=== PATIENT | male | born 1940 | race Caucasian/White ===

== ENCOUNTER → 2018-07-09 10:44 | Outpatient (CLI) | payer MEDICARE, SELFPAY ==
[2018-07-09 12:39] LABS: Hemoglobin A1c 5.9 % (4.2-6.3)
[2018-07-09 12:58] LABS: Anion Gap 11 (5-15); BUN 18 mg/dL (7-18); BUN/Creat Ratio 19.6 RATIO (10-20); Calcium,Total 8.3 mg/dL (8.5-10.1); Chloride 102 mmol/L (98-107); Cholesterol 185 mg/dL (200); Creatinine, Serum 0.92 mg/dL (0.70-1.30); EST Glomerular Filtration Rate 85 mL/min (>60); Est Glom Filt Rate - Afr Amer 103 mL/min (>60); Glucose 117 mg/dL (74-106); High Density Lipoprotein 20 mg/dL; Sodium Level 137 mmol/L (136-145); Triglycerides 1237 mg/dL
== END ==
PROVIDERS: Family Provider Family Medicine; PCP Family Medicine; Visit Provider Family Medicine
DX: I10 Essential (primary) hypertension (principal); R73.01 Impaired fasting glucose; E78.5 Hyperlipidemia, unspecified; M10.9 Gout, unspecified
CPT/HCPCS: 36415; 80048; 80061; 83036; 84550

== ENCOUNTER → 2018-09-13 09:30 | Outpatient (CLI) | payer MEDICARE, SELFPAY ==
[2018-09-13 12:09] LABS: Cholesterol 152 mg/dL (200); High Density Lipoprotein 35 mg/dL; Triglycerides 317 mg/dL; Very Low Density Lipoprotein 63 mg/dL (5-40)
== END ==
PROVIDERS: Family Provider Family Medicine; PCP Family Medicine; Visit Provider Family Medicine
DX: E78.5 Hyperlipidemia, unspecified (principal)
CPT/HCPCS: 36415; 80061

== ENCOUNTER 2019-02-15 00:44 | Inpatient (IN) | payer MEDICARE, SELFPAY ==
[2019-02-15] VITALS (21 sets, daily range): BP systolic 104–141; BP diastolic 63–86; PULSE 63–93; RESP 16–27; TEMP 36.4–37.3; O2SAT 90–95; BMI 37.0; BMI 35.6
--- NOTE | 2019-02-15 00:53 | CT_ITS ---
We are attempting to reach an attending provider to discuss findings. An addendum with communication details will be sent when the communication is complete. HISTORY: LOWER ABD PAIN X 2 HOURS EXAMINATION: CT Abdomen And Pelvis W/O Contrast TECHNIQUE: Helically acquired images were obtained of the abdomen and pelvis without oral or IV contrast as per renal stone protocol. A radiation dose optimization technique was used for this scan. IV Contrast dosage and agent: None. Oral contrast: None. COMPARISON: None FINDINGS: Lower thorax: Pectus excavatum deformity. Mild dependent atelectasis. No pleural effusion. GI tract: No obstruction. Normal appendix. Diverticulosis coli. The lower sigmoid shows localized mural thickening with pericolonic soft tissue stranding compatible with diverticulitis. Numerous gas bubbles within the upper abdomen and small pneumoperitoneum most likely secondary to perforated diverticulitis. The sigmoid site of inflammation shows a small intramural gas collection anteriorly. Small free fluid within the right pericolonic gutter. Fatty liver which is upper normal in size. No biliary dilatation or suspicious hepatic lesion. Normal spleen, pancreas, and gallbladder. Both kidneys are normal in position. No renal or ureteral calculi and no hydronephrosis or hydroureter. Adrenal glands are not enlarged. Abdominal aorta is atherosclerotic and is normal in caliber. No retroperitoneal lymph enlargement. Pelvis: Mild prostatic enlargement. Poor distention of the urinary bladder. Tiny intraluminal gas within urinary bladder and small gas-filled diverticulum of the upper anterior bladder is suggested. This is potentially a small urachal remnant. Bones: No acute osseous abnormality. Ventral abdominal Wall: Small umbilical hernia which contains a nondilated small bowel loop. CT/Abdomen/Pelvis without Cont IMPRESSION: 1. Lower sigmoid diverticulitis. Small pneumoperitoneum within the upper abdomen, likely related to perforated diverticulitis. Right pericolic small free fluid. The appendix appears negative. 2. Prostatic enlargement with small intraluminal urinary bladder gas which may be iatrogenic and recommend clinical correlation. 3. Chronic findings include fatty liver, atherosclerotic calcifications, and small umbilical hernia. Individualized dose optimization techniques were used for this CT. at 0322 Reported and signed by: Herson Keating MD Electronically Signed: Herson Keating, at 3:21 EDT Tel , Service support ,
[2019-02-15] MEDS: Ondansetron 4 MG/2 ML Vial IV (01:26)
[2019-02-15] MEDS: Morphine 4 MG/ML Syringe IV (01:26)
[2019-02-15 01:40] LABS: Absolute Lymphocyte Count 1.15 X10^3/ul (0.83-4.51); Absolute Neutrophil Count 13.2 X10^3/uL (2.0-7.7); Basophil# 0.01 X10^3/uL; Basophil% 0.1 % (0-1); Eosinophil# 0.01 X10^3/uL; Eosinophils% 0.1 % (0-5); Hematocrit 45.8 % (40-54); Hemoglobin 15.9 g/dl (13.0-16.5); Lymphocyte # 1.15 X10^3/ul (4.0); Lymphocyte % 7.6 % (19-41); Mean Corp Hgb Conc 34.7 g/gl (32-36); Mean Corpuscular Hgb 31.4 pg (27.0-32.0); Mean Corpuscular Volume 90.3 fL (80-94); Mean Platelet Vol. 10.4 fl (6.2-12.0); Neutrophil # 13.24 X10^3/uL (2.7-7.7); Platelet Count 218 K/mm3 (150-450); RBC Distribution Width CV 13.9 % (11.6-14.6); RBC Distribution Width SD 45.5 fl (35.1-43.9); Red Blood Count 5.07 M/mm3 (4.6-6.2)
[2019-02-15 01:49] LABS: POSITIVE COUNT NO; POSITIVE DIFFERENTIAL NO; POSITIVE MORPHOLOGY NO
[2019-02-15 02:01] LABS: AST(SGOT) 20 U/L (15-37); Alanine Aminotransfer ALT/SGPT 32 U/L (16-61); Albumin, Serum 3.5 g/dL (3.2-5.0); Alkaline Phosphatase 102 U/L (45-117); Anion Gap 13 (5-15); BUN 15 mg/dL (7-18); Calcium,Total 8.4 mg/dL (8.5-10.1); Chloride 100 mmol/L (98-107); Creatinine, Serum 1.07 mg/dL (0.70-1.30); EST Glomerular Filtration Rate 71 mL/min (>60); Est Glom Filt Rate - Afr Amer 86 mL/min (>60); Globulin 3.5 g/dL (2.2-4.2); Glucose 136 mg/dL (74-106); Lipase 92 U/L (73-393); Potassium 3.7 mmol/L (3.5-5.1); Sodium Level 135 mmol/L (136-145)
[2019-02-15 02:03] LABS: Lactic Acid 3.4 mmol/L (0.4-2.0)
--- NOTE | 2019-02-15 02:05 | ED.RN ---
LAB CALLED CRITICAL RESULT ON THIS PATIENT OF LACTIC ACID OF 3.4, DR DELGADO NOTIFIED, NFO GIVEN
[2019-02-15] MEDS: HYDROmorphone 0.5 MG/0.5 ML SYRINGE IV (03:15)
[2019-02-15 03:22] LABS: Red Blood Cells-Urine 0 SEEN /hpf (0-5)
[2019-02-15 03:30] LABS: Color, Urine Yellow (Yellow); Glucose, Dipstick Normal (Normal); Ketone-Dipstick 5 mg/dl (Negative); Leukocyte Esterase-Dipstick 25 /ul (Negative); Nitrite-Dipstick Negative (Negative); Occult Blood-Urine Negative /ul (Negative); Protein-Dipstick 15 mg/dl (Negative); Specific Gravity, Urine 1.025 (1.002-1.030); Urine Clarity Clear (Clear); Urine Urobilinogen 4 mg/dl (Normal)
[2019-02-15 03:32] LABS: Urine Bilirubin Dipstick 1 mg/dL (Negative)
[2019-02-15 03:35] LABS: Bacteria RARE /hpf (None Seen); Hyaline Cast 0-5 SEEN /lpf (0-5); Mucous, Urine 2+ /hpf (<or=2+)
[2019-02-15 03:36] LABS: Squamous Epithelial Cells - UA 0-5 SEEN /hpf (0-5); White Blood Cells 0-5 SEEN /hpf (0-5)
--- NOTE | 2019-02-15 03:43 | EKG12_ITS ---
Test Reason : Blood Pressure : / mmHG Vent. Rate : 067 BPM Atrial Rate : 067 BPM P-R Int : 178 ms QRS Dur : 076 ms QT Int : 410 ms P-R-T Axes : 037 -30 051 degrees QTc Int : 433 ms Normal sinus rhythm Left axis deviation Poor R- Wave Progression Abnormal ECG Confirmed by VINCE POLO, KEYNA ([id number]), news video editor AUTUMN COYLE ([id number]) on 02/16/2019 11:24:45 AM Referred By: MODE Confirmed By:KENYA CLARKE MD
--- NOTE | 2019-02-15 03:50 | ED.DCSUM_ITS ---
- ER Visit Summary Date of Service: 02/15/19 Chief Complaint: Abdominal pain History of Present Illness: The patient is a 78 M who presents with abdominal pain. This began about 2 hours before presentation. He states he felt like he did have a bowel movement then developed worsening diffuse cramping abdominal pain which she rates as severe. No nausea vomiting or diarrhea. No history of prior similar symptoms. He denies any history of abdominal surgeries. Physical Examination: Afebrile vitals unremarkable Patient does appear to be in significant pain Moist mucous membranes Heart regular rate and rhythm Lungs are clear Abdomen soft he slightly distended with diffuse abdominal tenderness without guarding without rebound he has normal bowel sounds Alert Test Results: Labs notable for white count of 15. Lactic acid 3.4. CT of the abdomen pelvis shows sigmoid diverticulitis with small pneumoperitoneum and right pericolic fluid. Emergency Department Course and Treatment: Patient was treated with IV fluids, morphine, Zofran. On return of CT results he was given IV Zosyn. On reevaluation he had transient improvement of pain but states his pain is back to the level it was when he initially presented. He was given IV Dilaudid with significant relief. I did speak to Dr. Greenwood who reviewed images call me back and plans for operative intervention. He will see the patient here in the emergency department. Treatment Plan: [] Disposition: To operating room pending surgical consult Impression: Diverticulitis Pneumoperitoneum This note was generated with [employer] dictation software. It may contain incorrect words, spelling, and punctuation that were not noted in review of the chart prior to signing ED Disposition - Plan for ED Patient: Referrals: Kyle Del Rosario MD [Primary Care Provider] -
[2019-02-15] MEDS: 0.9% Normal Saline 1,000 ML 999 ML IV (03:59)
--- NOTE | 2019-02-15 04:30 | COL_PTH ---
PATIENT: SAW RANDLE LOC: [facility]3 U#:[id number] AGE/SX: 78/M ROOM: MS318 RE02/15/[address]: Dr. Jose Rafael Monroy DO : 1940 BED: 1 DIS: 02/20/2019 SPEC #: [id number] RECD: 02/15/19 10:17 STATUS: MARLINE MAISHA #: [id number] SADAF: 02/15/19 04:[address]: Osbaldo Greenwood DEPT: SURGICAL PATHOLOGY RECD BY: Srinivasan Khalil ENTERED: 02/15/19 11:20 SP TYPE: COLON OTHR DR: Dr. Kyle Del Rosario MD Tissues: A - Colon, NOS B - Colon Donuts Procedures: Surgery Specimen Level III Surgery Specimen Level V HEADER OPERATION: Laparoscopic sigmoid colectomy with anastomosis PRE-OP DIAGNOSIS: Perforated diverticulum of large intestine TISSUE SUBMITTED: A - Sigmoid colon, suture zendejas distal, B - Donuts MICROSCOPIC DIAGNOSIS A. Sigmoid colon, colectomy: Diverticulosis and diverticulitis with focal area of ruptured diverticula. Donut-shaped piece of tissue with focal changes consistent with focal diverticulosis. B. Donuts: Colonic donuts x 2 with mucosal congestion and hemorrhage. MATILDE:real 02/17/19 MICROSCOPIC DESCRIPTION Slides are reviewed. GROSS DESCRIPTION A - Received in fixative is one container labeled with the patient's name and designated sigmoid colon, suture zendejas distal. The specimen consists of a segment of colon with attached pericolonic adipose tissue measuring 12.5 cm in length. One resection margin is stapled and marked by suture at distal resection margin. Sections reveal multiple diverticula. No obviously perforated diverticula are noted. Also present in the container is a donut-shaped piece of tissue measuring 2.5 cm in diameter. Some of the diverticula are filled with fecal material. Sections of the pericolonic adipose tissue do not reveal any obviously enlarged lymph node. Collection Systems Technician sections are submitted in seven cassettes as follows: 1??proximal resection, 2 - distal resection margin, 3-5 - diverticula, 6 - pericolonic adipose tissue, 7??donut-shaped piece of tissue. / SJ:real 02/16/19 B - Received in fixative is one container labeled with the patient's name and designated donuts. The specimen consists of two donuts measuring 1.7 x 1.5 x 1 cm and this donut shows multiple akua. The second donut with multiple sutures measure 1.7 x 1.5 x 1.5 cm. The mucosa shows focal area of congestion. Collection Systems Technician sections are submitted in two cassettes as follows: 1 - donut with akua, 2??donut with sutures. / MATILDE:real 02/16/19 TC:5 CPT: 32634, 72132 x2
--- NOTE | 2019-02-15 04:36 | PCM.HP.STD ---
Problem List (1) Perforated diverticulum of large intestine Status: Acute History of Present Illness Date of Admission: 02/15/19 The patient is a 78 year old M who presents with abdominal pain. He reports his abdominal pain started a few hours ago. He is not having any nausea or vomiting he states that he feels poorly. He describes abdominal pain is diffuse. He reports he is never had diverticulitis in the past and he is never had a colonoscopy. Past Medical History Allergies No Known Allergies Allergy (Verified 02/15/19 00:46) Home Medications: Ambulatory Orders Medication Instructions Recorded Allopurinol 300 mg PO DAILY 02/15/19 Amlodipine Besylate 10 mg PO DAILY 02/15/19 Atorvastatin Calcium 40 mg PO DAILY 02/15/19 Bisoprolol/Hydrochlorothiazide 1 tab PO DAILY 02/15/19 [Bisoprolol-Hctz 10-6.25 mg Tab] Icosapent Ethyl [Vascepa] 1 cap PO DAILY 02/15/19 Surgical History: no surgical history Smoking Status: Former smoker - *Family History Maternal History Items: No pertinent history Review of Systems Constitutional: Denies: Anorexia, Fever HEENT: Denies: Difficulty Swallowing Cardiovascular: Denies: Chest Pain Respiratory: Denies: Cough, Shortness of Breath Gastrointestinal: Reports: Abdominal Pain. Denies: Diarrhea, Hematemesis, Hematochezia, Nausea, Vomiting Genitourinary: Denies: Dysuria Musculoskeletal: Denies: Joint Tenderness Skin: Denies: Jaundice Neurological: Denies: Balance problems Psychiatric: Denies: Anxiety Hematologic/ Lymphatic: Denies: Anemia VTE Information - Inpt Only VTE Present on Admission: No VTE Mechan Device Prophylaxis: SCD's Patient Problems: Active and Suspected Problems Perforated diverticulum of large intestine (Acute) - Physical Exam General: Alert, Oriented x3, Cooperative HEENT: Atraumatic Neck: No JVD Lungs: Normal air movement Cardiovascular: Regular rate, Regular Rhythm Abdomen: Soft, Distended, Tender Extremities: No clubbing Skin: No rashes Musculoskeletal: No Muscle Wasting Neurological: Cranial nerves II-XII grossly intact Psych/Mental Status: Normal Affect Vital Signs Temp Pulse Resp BP Pulse Ox 98.4 F 71 19 H 134/72 H 93 02/15/19 03:59 02/15/19 04:00 02/15/19 04:00 02/15/19 04:00 02/15/19 04:00 Oxygen Flow Rate (L/min) 4 Oxygen Delivery Method Nasal Cannula Weight: 229 lb 15.074 oz Body Mass Index (BMI) 37.0 Laboratory Tests Past 24 Hrs 02/15/19 02/15/19 02/15/19 01:25 01:25 01:25 WBC 15.0 H RBC 5.07 Hgb 15.9 Hct 45.8 MCV 90.3 MCH 31.4 MCHC 34.7 RDW 13.9 RDW Differential 45.5 H Plt Count 218 MPV 10.4 Immature Gran % (Auto) 0.200 Neut % (Auto) 88.0 H Lymph % (Auto) 7.6 L [place] % (Auto) 4.0 Eos % (Auto) 0.1 Baso % (Auto) 0.1 Absolute Neuts (auto) 13.2 H Absolute Lymphs (auto) 1.15 Total Counted Not Reportable Sodium 135 L Potassium 3.7 Chloride 100 Carbon Dioxide 22.0 Anion Gap 13 BUN 15 Creatinine 1.07 Estim Creat Clear Calc 53.00 Est GFR (MDRD) Af Amer 86 Est GFR (MDRD) Non-Af 71 BUN/Creatinine Ratio 14.0 Glucose 136 H Lactic Acid 3.4 H Calcium 8.4 L Total Bilirubin 0.70 AST 20 ALT 32 Alkaline Phosphatase 102 Total Protein 7.0 Albumin 3.5 Globulin 3.5 Albumin/Globulin Ratio 1.0 Lipase 92 Urine Color Urine Clarity Urine pH Ur Specific [place] Urine Protein Urine Glucose (UA) Urine Ketones Urine Occult Blood Urine Nitrite Urine Bilirubin Urine Urobilinogen Ur Leukocyte Esterase Urine RBC Urine WBC Ur Squamous Epith Cells Urine Bacteria Hyaline Casts Urine Mucus 02/15/19 03:05 WBC RBC Hgb Hct MCV MCH MCHC RDW RDW Differential Plt Count MPV Immature Gran % (Auto) Neut % (Auto) Lymph % (Auto) Barry % (Auto) Eos % (Auto) Baso % (Auto) Absolute Neuts (auto) Absolute Lymphs (auto) Total Counted Sodium Potassium Chloride Carbon Dioxide Anion Gap BUN Creatinine Estim Creat Clear Calc Est GFR (MDRD) Af Amer Est GFR (MDRD) Non-Af BUN/Creatinine Ratio Glucose Lactic Acid Calcium Total Bilirubin AST ALT Alkaline Phosphatase Total Protein Albumin Globulin Albumin/Globulin Ratio Lipase Urine Color Yellow Urine Clarity Clear Urine pH 5.0 Ur Specific [place] 1.025 Urine Protein 15 H Urine Glucose (UA) Normal Urine Ketones 5 H Urine Occult Blood Negative Urine Nitrite Negative Urine Bilirubin 1 H Urine Urobilinogen 4 H Ur Leukocyte Esterase 25 H Urine RBC 0 SEEN Urine WBC 0-5 SEEN Ur Squamous Epith Cells 0-5 SEEN Urine Bacteria RARE Hyaline Casts 0-5 SEEN Urine Mucus 2+ Clinical Impression(s) from Imaging Studies Abdomen/Pelvis CT 02/15/19 00:53 IMPRESSION: 1. Lower sigmoid diverticulitis. Small pneumoperitoneum within the upper abdomen, likely related to perforated diverticulitis. Right pericolic small free fluid. The appendix appears negative. 2. Prostatic enlargement with small intraluminal urinary bladder gas which may be iatrogenic and recommend clinical correlation. 3. Chronic findings include fatty liver, atherosclerotic calcifications, and small umbilical hernia. Individualized dose optimization techniques were used for this CT. at 0322 Reported and signed by: Herson Keating MD Electronically Signed: Herson Keating, at 3:21 EDT Tel , Service support , ADDENDUM: 02/15/19 0403 IMPRESSION: 1. Lower sigmoid diverticulitis. Small pneumoperitoneum within the upper abdomen, likely related to perforated diverticulitis. Right pericolic small free fluid. The appendix appears negative. 2. Prostatic enlargement with small intraluminal urinary bladder gas which may be iatrogenic and recommend clinical correlation. 3. Chronic findings include fatty liver, atherosclerotic calcifications, and small umbilical hernia. Individualized dose optimization techniques were used for this CT. at 0322 Reported and signed by: Herson Keating MD N.B. : The above information has been verbally conveyed by Herson Keating to Khris Elmore MD, on 02/15/2019 03:56:14 (ET). Electronically Signed: Herson Keating, at 3:21 EDT Tel , Service support , Assessment/Plan All Active Problems Perforated diverticulum of large intestine (Acute) 78-year-old male with perforated diverticulitis 1. Patient presented with leukocytosis and abdominal pain. CT showed likely perforated diverticulitis. I explained this to the patient and his family. I will take the patient for emergency surgery this morning. Patient received Zosyn in the emergency room and he has been typed and screened and EKG has been obtained. 2. I explained surgery in detail with the patient and his family. I will plan for a laparoscopic sigmoid colectomy with possible anastomosis or possible stoma. I also explained the possibility of having to open. I explained the risks of the procedure including but not limited to bleeding, infection, injury to small bowel, injury to ureter or bladder, anastomotic leak. I also explained that it may be necessary to place an end colostomy or diverting loop ileostomy. Patient understands the risks and is willing to proceed with surgery. I also explained that there is a possibility this may be a malignancy as the patient has never had a colonoscopy. Osbaldo Greenwood MD Pager: [facility] [address] [place] [address] [address] [place] [address] Office:
--- NOTE | 2019-02-15 04:46 | HP.PCM_ITS ---
Problem List (1) Perforated diverticulum of large intestine Status: Acute History of Present Illness Date of Admission: 02/15/19 The patient is a 78 year old M who presents with abdominal pain. He reports his abdominal pain started a few hours ago. He is not having any nausea or vomiting he states that he feels poorly. He describes abdominal pain is diffuse. He reports he is never had diverticulitis in the past and he is never had a colonoscopy. Past Medical History Allergies No Known Allergies Allergy (Verified 02/15/19 00:46) Home Medications: Ambulatory Orders Medication Instructions Recorded Allopurinol 300 mg PO DAILY 02/15/19 Amlodipine Besylate 10 mg PO DAILY 02/15/19 Atorvastatin Calcium 40 mg PO DAILY 02/15/19 Bisoprolol/Hydrochlorothiazide 1 tab PO DAILY 02/15/19 [Bisoprolol-Hctz 10-6.25 mg Tab] Icosapent Ethyl [Vascepa] 1 cap PO DAILY 02/15/19 Surgical History: no surgical history Smoking Status: Former smoker - *Family History Maternal History Items: No pertinent history Review of Systems Constitutional: Denies: Anorexia, Fever HEENT: Denies: Difficulty Swallowing Cardiovascular: Denies: Chest Pain Respiratory: Denies: Cough, Shortness of Breath Gastrointestinal: Reports: Abdominal Pain. Denies: Diarrhea, Hematemesis, Hematochezia, Nausea, Vomiting Genitourinary: Denies: Dysuria Musculoskeletal: Denies: Joint Tenderness Skin: Denies: Jaundice Neurological: Denies: Balance problems Psychiatric: Denies: Anxiety Hematologic/ Lymphatic: Denies: Anemia VTE Information - Inpt Only VTE Present on Admission: No VTE Mechan Device Prophylaxis: SCD's Patient Problems: Active and Suspected Problems Perforated diverticulum of large intestine (Acute) - Physical Exam General: Alert, Oriented x3, Cooperative HEENT: Atraumatic Neck: No JVD Lungs: Normal air movement Cardiovascular: Regular rate, Regular Rhythm Abdomen: Soft, Distended, Tender Extremities: No clubbing Skin: No rashes Musculoskeletal: No Muscle Wasting Neurological: Cranial nerves II-XII grossly intact Psych/Mental Status: Normal Affect Vital Signs Temp Pulse Resp BP Pulse Ox 98.4 F 71 19 H 134/72 H 93 02/15/19 03:59 02/15/19 04:00 02/15/19 04:00 02/15/19 04:00 02/15/19 04:00 Oxygen Flow Rate (L/min) 4 Oxygen Delivery Method Nasal Cannula Weight: 229 lb 15.074 oz Body Mass Index (BMI) 37.0 Laboratory Tests Past 24 Hrs 02/15/19 02/15/19 02/15/19 01:25 01:25 01:25 WBC 15.0 H RBC 5.07 Hgb 15.9 Hct 45.8 MCV 90.3 MCH 31.4 MCHC 34.7 RDW 13.9 RDW Differential 45.5 H Plt Count 218 MPV 10.4 Immature Gran % (Auto) 0.200 Neut % (Auto) 88.0 H Lymph % (Auto) 7.6 L [place] % (Auto) 4.0 Eos % (Auto) 0.1 Baso % (Auto) 0.1 Absolute Neuts (auto) 13.2 H Absolute Lymphs (auto) 1.15 Total Counted Not Reportable Sodium 135 L Potassium 3.7 Chloride 100 Carbon Dioxide 22.0 Anion Gap 13 BUN 15 Creatinine 1.07 Estim Creat Clear Calc 53.00 Est GFR (MDRD) Af Amer 86 Est GFR (MDRD) Non-Af 71 BUN/Creatinine Ratio 14.0 Glucose 136 H Lactic Acid 3.4 H Calcium 8.4 L Total Bilirubin 0.70 AST 20 ALT 32 Alkaline Phosphatase 102 Total Protein 7.0 Albumin 3.5 Globulin 3.5 Albumin/Globulin Ratio 1.0 Lipase 92 Urine Color Urine Clarity Urine pH Ur Specific [place] Urine Protein Urine Glucose (UA) Urine Ketones Urine Occult Blood Urine Nitrite Urine Bilirubin Urine Urobilinogen Ur Leukocyte Esterase Urine RBC Urine WBC Ur Squamous Epith Cells Urine Bacteria Hyaline Casts Urine Mucus 02/15/19 03:05 WBC RBC Hgb Hct MCV MCH MCHC RDW RDW Differential Plt Count MPV Immature Gran % (Auto) Neut % (Auto) Lymph % (Auto) [place] % (Auto) Eos % (Auto) Baso % (Auto) Absolute Neuts (auto) Absolute Lymphs (auto) Total Counted Sodium Potassium Chloride Carbon Dioxide Anion Gap BUN Creatinine Estim Creat Clear Calc Est GFR (MDRD) Af Amer Est GFR (MDRD) Non-Af BUN/Creatinine Ratio Glucose Lactic Acid Calcium Total Bilirubin AST ALT Alkaline Phosphatase Total Protein Albumin Globulin Albumin/Globulin Ratio Lipase Urine Color Yellow Urine Clarity Clear Urine pH 5.0 Ur Specific [place] 1.025 Urine Protein 15 H Urine Glucose (UA) Normal Urine Ketones 5 H Urine Occult Blood Negative Urine Nitrite Negative Urine Bilirubin 1 H Urine Urobilinogen 4 H Ur Leukocyte Esterase 25 H Urine RBC 0 SEEN Urine WBC 0-5 SEEN Ur Squamous Epith Cells 0-5 SEEN Urine Bacteria RARE Hyaline Casts 0-5 SEEN Urine Mucus 2+ Clinical Impression(s) from Imaging Studies Abdomen/Pelvis CT 02/15/19 00:53 IMPRESSION: 1. Lower sigmoid diverticulitis. Small pneumoperitoneum within the upper abdomen, likely related to perforated diverticulitis. Right pericolic small free fluid. The appendix appears negative. 2. Prostatic enlargement with small intraluminal urinary bladder gas which may be iatrogenic and recommend clinical correlation. 3. Chronic findings include fatty liver, atherosclerotic calcifications, and small umbilical hernia. Individualized dose optimization techniques were used for this CT. at 0322 Reported and signed by: Herson Keating MD Electronically Signed: Herson Keating, at 3:21 EDT Tel , Service support , ADDENDUM: 02/15/19 0403 IMPRESSION: 1. Lower sigmoid diverticulitis. Small pneumoperitoneum within the upper abdomen, likely related to perforated diverticulitis. Right pericolic small free fluid. The appendix appears negative. 2. Prostatic enlargement with small intraluminal urinary bladder gas which may be iatrogenic and recommend clinical correlation. 3. Chronic findings include fatty liver, atherosclerotic calcifications, and small umbilical hernia. Individualized dose optimization techniques were used for this CT. at 0322 Reported and signed by: Herson Keating MD N.B. : The above information has been verbally conveyed by Herson Keating to Khris Elmore MD, on 02/15/2019 03:56:14 (ET). Electronically Signed: Herson Keating, at 3:21 EDT Tel , Service support , Assessment/Plan All Active Problems Perforated diverticulum of large intestine (Acute) 78-year-old male with perforated diverticulitis 1. Patient presented with leukocytosis and abdominal pain. CT showed likely perforated diverticulitis. I explained this to the patient and his family. I will take the patient for emergency surgery this morning. Patient received Zosyn in the emergency room and he has been typed and screened and EKG has been obtained. 2. I explained surgery in detail with the patient and his family. I will plan for a laparoscopic sigmoid colectomy with possible anastomosis or possible stoma. I also explained the possibility of having to open. I explained the risks of the procedure including but not limited to bleeding, infection, injury to small bowel, injury to ureter or bladder, anastomotic leak. I also explained that it may be necessary to place an end colostomy or diverting loop ileostomy. Patient understands the risks and is willing to proceed with surgery. I also explained that there is a possibility this may be a malignancy as the patient has never had a colonoscopy. Osbaldo Greenwood MD Pager: [facility] [address] [place] [address] [address] [place] [address] Office:
[2019-02-15 05:04] LABS: International Normalized Ratio 1.1; Prothrombin Time (Protime)PT. 13.5 SECONDS (11.7-14.9)
[2019-02-15 05:36] LABS: Reflex Lactate? Y
[2019-02-15] MEDS: Bupiv/Epi 0.5% Mpf 30 ML Vial (08:34)
[2019-02-15 10:10] LABS: Lactic Acid 4.3 mmol/L (0.4-2.0)
[2019-02-15] MEDS: Lactated Ringers 500 ML 999 ML IV (10:40)
[2019-02-15] MEDS: Dextrose 5%-Lactated Ringers 1,000 ML 125 ML IV ×2 (13:26→21:25)
[2019-02-15] MEDS: Pantoprazole Sodium 40 MG Tablet PO (13:28)
[2019-02-15] MEDS: Ketorolac 15 MG/ML Vial IV ×2 (13:29→21:38)
[2019-02-15] MEDS: 0.9% NaCl Peripheral Flush Adult/Peds IV ×3 (13:29→21:39)
[2019-02-15] MEDS: Piperacil/Tazobactam 3.375 GM/50 ML ML IV ×2 (13:30→21:29)
--- NOTE | 2019-02-15 13:41 | PCM.OPRPT ---
Problem List (1) Perforated diverticulum of large intestine Status: Acute Report of Operation Date of Procedure: 02/15/19 Pre-Operative Diagnosis: Sigmoid diverticulitis with perforation Post-Operative Diagnosis: Same Surgery/Procedure Performed:: Laparoscopic sigmoid colectomy with primary anastomosis Description of Surgical Findings:: Patient had perforated sigmoid diverticulitis with purulent peritonitis. Hinshey class II Specimen's removed: 1. Sigmoid colon. 2. Anastomotic donuts Estimated Blood Loss (mL): 50 Description of Procedure: The patient was brought back to the operating room and general anesthesia was induced. [place]os catheter was placed. The patient was placed in stirrups and a rectal lavage with saline and Betadine was completed. Next the abdomen was prepped and draped in usual sterile fashion. A small incision was made superior to the umbilicus and deepened to the fascia. The fascia was elevated and incised. A 12 mm port was placed into the abdomen and the abdomen was insufflated to 15 mmHg. A camera was placed into the abdomen and there were no injuries from entry. The patient had purulent peritonitis. Next a right lower quadrant 12 mm port was placed under direct visualization as well as a right lower quadrant 5 mm port. Next the sigmoid colon was inspected and appeared to have a perforation in the mid sigmoid. The proximal sigmoid and descending colon appeared normal. The rectum and distal sigmoid also appeared normal. The left colon was taken down from the white line of Toldt. Next the sigmoid mesentery was divided just under the sigmoid colon using Enseal. Once the colon was divided through to the other side of the mesentery the sigmoid colon was elevated and working distally the mesentery was taken from the sigmoid colon until the rectum was reached. Next using a articulating [place] stapler the rectum was divided. The mesentery was then taken down with Enseal proximally until healthy viable colon was reached. At this time an incision was made in the inferior midline and deepened to the fascia and the fascia was elevated and incised. A wound protector was placed into the abdomen. Next the colon specimen was delivered through this and proximal to the perforated area, where healthy colon was encountered the colon was sharply divided. There was good bleeding at the mucosal edges. Next the colon was inspected and sizers were used to determine a 29 EEA stapler was appropriate. The EEA anvil was placed into the distal colon and an 0 Prolene was used to pursestring the colon around the anvil taking sure that there were no diverticulum at the proposed staple line. The descending colon was placed back into the abdomen and the wound protector was twisted and closed with an umbilical tape. The abdomen was reinsufflated to 15 mmHg. The sizers were placed into the rectal vault by the family medicine physician assistant until they reach the staple line and then the 29 EEA stapler was placed into the rectum until it abutted the staple line. The point was placed through the staple line and the anvil was placed over the point of the stapler. The stapler was closed under direct visualization making sure that no adjacent fat or bowel were included. Next the stapler was fired and removed. Next a rigid proctoscope was placed into the rectum and the pelvis was filled with saline. After pressure was placed on the descending colon air was insufflated into the rectum until it escaped around the scope. There appeared to be no bubbles in the pelvis. This indicated that there was no leak at this time. Next the rigid proctoscope was removed. The abdomen was then copiously irrigated in all quadrants with several liters of fluid. The abdomen was then suctioned and the ports were then removed as well as the wound protector. The entire operating staff changed gloves and gowns. 0 Vicryl suture was used to close the superior and right lower quadrant 12 mm port fascia in interrupted fashion. Next #1 PDS was used to close the inferior midline incision starting from the top and bottom and meeting in the middle. All incisions were then irrigated copiously with fluid and suction. All incisions were anesthetized with local anesthesia. A Lavon drain was placed in the inferior incision and sutured in place with a 4-0 Monocryl suture. The skin was then loosely approximated over the drain using two 4-0 Monocryl sutures. The other incisions were also loosely closed with single Monocryl sutures. These were very loosely closed to allow drainage. Bandages were then applied. Patient was awoken and taken to PACU in stable condition with Lagos in place. - Admit VTE Documentation VTE Present on Admission: No VTE Mechan Device Prophylaxis: SCD's
[2019-02-15 14:40] LABS: Lactic Acid 2.7 mmol/L (0.4-2.0)
[2019-02-15 18:08] LABS: Reflex Lactate? Y
[2019-02-15] MEDS: LORazepam 2 MG/ML Syringe 1 MG IV (18:38)
[2019-02-15 20:04] LABS: Lactic Acid 1.7 mmol/L (0.4-2.0)
[2019-02-15] MEDS: Atorvastatin Calcium 40 MG Tablet PO (21:38)
[2019-02-16] VITALS (13 sets, daily range): BP systolic 130–161; BP diastolic 65–90; PULSE 73–87; RESP 20–24; TEMP 36.8–37.7; O2SAT 93–96
[2019-02-16] MEDS: LORazepam 2 MG/ML Syringe 1 MG IV ×3 (00:21→11:41)
[2019-02-16] MEDS: 0.9% NaCl Peripheral Flush Adult/Peds IV ×4 (00:24→16:28)
[2019-02-16] MEDS: Ketorolac 15 MG/ML Vial IV (05:11)
[2019-02-16] MEDS: Dextrose 5%-Lactated Ringers 1,000 ML 125 ML IV (05:12)
[2019-02-16] MEDS: Piperacil/Tazobactam 3.375 GM/50 ML ML IV ×3 (05:12→22:01)
[2019-02-16 05:58] LABS: Anion Gap 9 (5-15); BUN 14 mg/dL (7-18); BUN/Creat Ratio 13.6 RATIO (10-20); Calcium,Total 7.9 mg/dL (8.5-10.1); Chloride 105 mmol/L (98-107); Creatinine, Serum 1.03 mg/dL (0.70-1.30); EST Glomerular Filtration Rate 75 mL/min (>60); Est Glom Filt Rate - Afr Amer 90 mL/min (>60); Estimated Creatinine Clearance 55.06 ml/min; Glucose 140 mg/dL (74-106); Potassium 3.6 mmol/L (3.5-5.1); Sodium Level 140 mmol/L (136-145)
[2019-02-16 06:01] LABS: Absolute Lymphocyte Count 0.94 X10^3/ul (0.83-4.51); Basophil# 0.02 X10^3/uL; Basophil% 0.1 % (0-1); Eosinophil# 0.04 X10^3/uL; Eosinophils% 0.3 % (0-5); Hematocrit 40.2 % (40-54); Hemoglobin 13.1 g/dl (13.0-16.5); Lymphocyte # 0.94 X10^3/ul (4.0); Lymphocyte % 6.4 % (19-41); Mean Corp Hgb Conc 32.6 g/gl (32-36); Mean Corpuscular Hgb 30.5 pg (27.0-32.0); Mean Corpuscular Volume 93.5 fL (80-94); Mean Platelet Vol. 10.9 fl (6.2-12.0); Monocyte# 0.62 X10^3/uL; Monocyte% 4.2 % (0-10); Neutrophil # 12.97 X10^3/uL (2.7-7.7); Neutrophil % 88.7 % (47-70); Platelet Count 204 K/mm3 (150-450); RBC Distribution Width CV 14.3 % (11.6-14.6); RBC Distribution Width SD 47.6 fl (35.1-43.9); White Blood Count 14.6 K/mm3 (4.4-11.0)
--- NOTE | 2019-02-16 06:01 | EKG12_ITS ---
Test Reason : CP Blood Pressure : / mmHG Vent. Rate : 087 BPM Atrial Rate : 087 BPM P-R Int : 204 ms QRS Dur : 090 ms QT Int : 380 ms P-R-T Axes : 033 -29 094 degrees QTc Int : 457 ms Normal sinus rhythm Normal ECG No previous ECGs available Confirmed by JEFFREY POLO, THANH ([id number]), news videotape editor AUTUMN COYLE ([id number]) on 02/17/2019 11:59:45 AM Referred By: SANDY Confirmed By:THANH MURPHY MD
[2019-02-16 06:05] LABS: POSITIVE COUNT NO; POSITIVE DIFFERENTIAL NO; POSITIVE MORPHOLOGY NO
--- NOTE | 2019-02-16 06:05 | CON.PCM_ITS ---
Problem List (1) Chest pain at rest Status: Acute (2) Perforated diverticulum of large intestine Status: Acute Reason for Consult Date of Consultation: 02/16/19 Reason for Consultation: chest pain History of Present Illness: The patient is a 78 year old M with a significant history of hypertension; hyperlipidemia; tobacco abuse who had a laparoscopic sigmoid colectomy with primary anastomosis after a diagnosis of sigmoid diverticulitis with perforation complaining of chest pain that span across his entire chest. He rates his chest pain as 6-7 on a scale of 1-10. He describes his chest pain as a discomfort and a crampy type of pain. He denies any nausea or vomiting. Associated with his chest pain is diaphoresis. There are no ameliorating or aggravating factors to the chest pain. He tried changing position but it did not help. Also he tried walking; it also did not help. His last stress test was about 25 to 30 years ago. Although at home he does not use oxygen nurse reports that the patient has required about 4 L of oxygen by nasal cannula to keep appropriate oxygenation. He denied any relevant family history of heart disease. His mother from heart failure at about 89 years old. His father had heart attack and eventually from complications of heart disease at age 86. Past Medical History Medical History: Medical History (Last Reviewed 02/16/19 @ 07:39 by Vikram Xie MD) HLD (hyperlipidemia) E78.5 HTN (hypertension) I10 Allergies No Known Allergies Allergy (Verified 02/15/19 00:46) Home Medications: Ambulatory Orders Medication Instructions Recorded Allopurinol 300 mg PO DAILY 02/15/19 Amlodipine Besylate 10 mg PO DAILY 02/15/19 Aspir 81 81 mg PO DAILY 02/15/19 Atorvastatin Calcium 40 mg PO DAILY 02/15/19 Bisoprolol/Hydrochlorothiazide 1 tab PO DAILY 02/15/19 [Bisoprolol-Hctz 10-6.25 mg Tab] Icosapent Ethyl [Vascepa] 1 cap PO DAILY 02/15/19 Surgical History: colectomy, - Lives: Spouse/ Significant Other Smoking Status: Current some day smoker - *Family History Maternal History Items: Heart Disease Paternal History Items: Heart Disease Review of Systems Constitutional: Denies: Chills, Fever, Weight Change HEENT: Denies: Head Aches, Sinus Congestion, Sinus Drainage Cardiovascular: Reports: Chest Pain. Denies: Palpitations Respiratory: Denies: Cough, Shortness of breath at rest, Sputum production Gastrointestinal: Denies: Abdominal Pain, Nausea, Vomiting Genitourinary: Denies: Dysuria Musculoskeletal: Denies: Joint Pain, Joint Tenderness Skin: Denies: Rash, Wounds Neurological: Denies: Numbness, Tingling, Focal weakness Psychiatric: Denies: Anxiety, Depression, Homicidal Ideations, Suicidal Ideations Hematologic/ Lymphatic: Denies: Easy Bruising, Easy Bleeding Patient Problems: Active and Suspected Problems (Last Updated 02/16/19 @ 07:35 by Vikram Xie MD) Perforated diverticulum of large intestine (Acute) Chest pain at rest (Acute) - Physical Exam General: Alert, Oriented x3, Cooperative HEENT: Atraumatic, PERRLA, EOMI, Normocephalic Neck: Supple, No JVD, Negative Carotid Bruits Lungs: Clear to auscultation, Normal air movement Cardiovascular: Regular rate, Normal S1, Normal S2, Murmur Abdomen: Soft, Tender, - - Multiple dressing on abdomen, dry and intact. Extremities: No edema, Capillary Refill Less than 3 Seconds Skin: No rashes, No breakdown Musculoskeletal: No Tenderness to Palpation of Joints or Extremities Neurological: Cranial nerves II-XII grossly intact Psych/Mental Status: Normal Affect, Appropriate Vital Signs Temp Pulse Resp BP Pulse Ox 98.5 F 87 20 H 155/90 H 93 02/16/19 05:15 02/16/19 05:43 02/16/19 05:15 02/16/19 05:43 02/16/19 05:15 Oxygen Flow Rate (L/min) 4 Oxygen Delivery Method Nasal Cannula Weight: 100 kg Body Mass Index (BMI) 35.6 Intake and Output for Last 24 Hours 02/14/19 02/15/19 02/16/19 23:59 23:59 23:59 Intake Total 2700 / 2700 2235 / 2235 Output Total 450 / 450 700 / 700 Balance 2250 / 2250 1535 / 1535 Laboratory Tests Past 24 Hrs 02/15/19 02/15/19 02/15/19 09:36 13:55 19:25 WBC RBC Hgb Hct MCV MCH MCHC RDW RDW Differential Plt Count MPV Immature Gran % (Auto) Neut % (Auto) Lymph % (Auto) Anderson % (Auto) Eos % (Auto) Baso % (Auto) Absolute Neuts (auto) Absolute Lymphs (auto) Total Counted Sodium Potassium Chloride Carbon Dioxide Anion Gap BUN Creatinine Estim Creat Clear Calc Est GFR (MDRD) Af Amer Est GFR (MDRD) Non-Af BUN/Creatinine Ratio Glucose Lactic Acid 4.3 H* 2.7 H 1.7 Calcium 02/16/19 02/16/19 05:16 05:16 WBC 14.6 H RBC 4.30 L Hgb 13.1 Hct 40.2 MCV 93.5 MCH 30.5 MCHC 32.6 RDW 14.3 RDW Differential 47.6 H Plt Count 204 MPV 10.9 Immature Gran % (Auto) 0.300 Neut % (Auto) 88.7 H Lymph % (Auto) 6.4 L Anderson % (Auto) 4.2 Eos % (Auto) 0.3 Baso % (Auto) 0.1 Absolute Neuts (auto) 13.0 H Absolute Lymphs (auto) 0.94 Total Counted Not Reportable Sodium 140 Potassium 3.6 Chloride 105 Carbon Dioxide 26.0 Anion Gap 9 BUN 14 Creatinine 1.03 Estim Creat Clear Calc 55.06 Est GFR (MDRD) Af Amer 90 Est GFR (MDRD) Non-Af 75 BUN/Creatinine Ratio 13.6 Glucose 140 H Lactic Acid Calcium 7.9 L Assessment/Plan All Active Problems (Last Updated 02/16/19 @ 07:35 by Vikram Xie MD) Perforated diverticulum of large intestine (Acute) Chest pain at rest (Acute) The patient is a 78 year old M with a significant history of hypertension; hyperlipidemia; tobacco abuse who had a laparoscopic sigmoid colectomy with primary anastomosis after a diagnosis of sigmoid diverticulitis with perforation complaining of chest pain and also found to be hypoxic. Chest pain Placed on Telemetery CXR ordered General surgery ordered EKG. EKG independently reviewed confirms no acute cardiopulmonary process. Aspirin 81 mg daily continued SL NTG 0.4 mg prn as needed for chest pain Morphine as needed for pain Stop Toradol for now. We will check lipid panel. High intensity statin continued. Serial cardiac enzymes ordered by general surgery. First troponin is unremarkable. Follow troponin. Acute Respiratory Insufficiency Patient is requiring 4 L/min nasal cannula after surgery. We will get BNP and echocardiogram. We will decrease his infusion rate of his dextrose/lactated Ringer's. Sigmoid diverticulitis with perforation s/p Laparoscopic sigmoid colectomy with primary anastomosis POD#1 Management per primary. Hypertension Blood pressure is not within goal Amlodipine, hydrochlorothiazide, and bisoprolol continued. Trend blood pressure and adjust blood pressure medications PRN labetalol ordered Tobacco Abuse Counselled DVT Prophylaxis On Lovenox and SCD. Code Visit Inpatient E&M: 38798 Init Hosp L3
--- NOTE | 2019-02-16 06:55 | ECHOD_ITS ---
Reason For Study: Chest Pain Procedure This was a 2D Doppler, Color Flow transthoracic echocardiogram. The study was technically difficult. Poor apical windows. Exam performed portable in patient room. Left Ventricle Normal LV size. Left ventricular systolic function is normal. The estimated ejection fraction is 60 %. Stage 1 diastolic dysfunction. No regional wall motion abnormalities noted. Right Ventricle Normal RV size. Normal systolic function. Atria Normal left atrium. Normal right atrium. Mitral Valve Normal mitral valve. Tricuspid Valve Normal tricuspid valve. Aortic Valve Trisinus/trileaflet aortic valve. Mild focal aortic valve calcification. Pulmonic Valve Normal pulmonic valve. Great Vessels Normal aortic root. The pulmonary artery is normal size. Normal inferior vena cava. Pericardium/Pleural No pericardial effusion. MMode/2D Measurements & Calculations LVIDd: 5.1 cm IVSd: 0.91 cm LVOT diam: 2.0 cm LVIDs: 3.1 cm LVPWd: 1.1 cm LVOT area: 3.2 cm2 FS: 39.8 % Ao root diam: 3.2 cm LA dimension: 3.8 cm Time Measurements MV dec time: 0.26 sec Doppler Measurements & Calculations MV E max da: 88.6 cm/sec Lat Peak E' Da: 7.9 cm/sec Med Peak E' Da: 10.3 cm/sec MV A max da: 110.7 cm/sec E/E' lat: 11.2 E/E' med: 8.6 MV E/A: 0.80 MV V2 max: 133.9 cm/sec MV P1/2t max da: 113.6 cm/sec Ao V2 max: 160.8 cm/sec MV max P.2 mmHg MV P1/2t: 65.6 msec Ao max P.3 mmHg MV V2 mean: 67.8 cm/sec MV mean P.2 mmHg MV dec slope: 507.0 cm/sec2 HERNAN(V,D): 2.4 cm2 MV V2 VTI: 35.8 cm MVA(P1/2t): 3.4 cm2 LV V1 max: 120.8 cm/sec PA V2 max: 116.5 cm/sec LV V1 max P.8 mmHg Interpretation Summary Normal LV size. Left ventricular systolic function is normal. The estimated ejection fraction is 60 %. Stage 1 diastolic dysfunction. Mild focal aortic valve calcification. Ordering Physician: Vikram Xie Referring Physician: Kyle Del Rosario Performed By: Kamar Maradiaga RCS
--- NOTE | 2019-02-16 07:23 | RAD_ITS ---
STUDY: X-RAY CHEST REASON FOR EXAM: Male, 78 years old. Chest pain. TECHNIQUE: AP and lateral views of the chest. COMPARISON: None. FINDINGS: EKG electrodes are seen. Limited inspiratory effort. Increased markings at the lung bases suggest some bibasilar atelectasis and/or early infiltrates. There is mild cardiac enlargement. Normal mediastinum and evelyn. Normal visualized pulmonary arteries. Normal visualized aortic arch and descending thoracic aorta. Normal visualized thoracic spine. Normal visualized ribs, clavicles, and shoulders. There is no demonstrated abnormality of the visualized soft tissue structures of the upper abdomen. RAD/Chest PA and Lateral IMPRESSION: Limited inspiratory effort. Increased markings at the lung bases suggestive of bibasilar atelectasis and/or infiltrates. Electronically Signed: Marcus Villarreal, at 10:52 EDT , Service support ,
[2019-02-16 08:12] LABS: BNP,B-Type NATRIURETIC PEPTIDE 142.8 pg/mL (0-100)
[2019-02-16] MEDS: Dext 5%-0.45% NS 1,000 ML 60 ML IV (08:30)
--- NOTE | 2019-02-16 09:08 | PN.SURG_ITS ---
Patient Problems: Active and Suspected Problems (Last Reviewed 02/16/19 @ 07:39 by Vikram Xie MD) Perforated diverticulum of large intestine (Acute) Chest pain at rest (Acute) Subjective: Patient had some chest pain this morning and shortness of breath. He was found to be hypoxic and put on oxygen. Hospitalist was consulted. He says that he has no chest pain at the current time. He is not passing any flatus. No nausea or vomiting. Abdominal pain is well controlled. - Physical Exam General: Alert, Oriented x3 Neck: No JVD Abdomen: Soft, Distended Vital Signs Temp Pulse Resp BP Pulse Ox 98.5 F 87 20 H 155/90 H 93 02/16/19 05:15 02/16/19 05:43 02/16/19 05:15 02/16/19 05:43 02/16/19 05:15 Oxygen Flow Rate (L/min) 4 Oxygen Delivery Method Nasal Cannula Weight: 220 lb 7.396 oz Body Mass Index (BMI) 35.6 Intake and Output for Last 24 Hours 02/14/19 02/15/19 02/16/19 23:59 23:59 23:59 Intake Total 2700 / 2700 2235 / 2235 Output Total 450 / 450 975 / 975 Balance 2250 / 2250 1260 / 1260 Laboratory Tests Past 24 Hrs 02/15/19 02/15/19 02/15/19 09:36 13:55 19:25 WBC RBC Hgb Hct MCV MCH MCHC RDW RDW Differential Plt Count MPV Immature Gran % (Auto) Neut % (Auto) Lymph % (Auto) [place] % (Auto) Eos % (Auto) Baso % (Auto) Absolute Neuts (auto) Absolute Lymphs (auto) Total Counted Sodium Potassium Chloride Carbon Dioxide Anion Gap BUN Creatinine Estim Creat Clear Calc Est GFR (MDRD) Af Amer Est GFR (MDRD) Non-Af BUN/Creatinine Ratio Glucose Lactic Acid 4.3 H* 2.7 H 1.7 Calcium Ionized Calcium Troponin I B-Natriuretic Peptide 02/16/19 02/16/19 02/16/19 05:16 05:16 05:16 WBC 14.6 H RBC 4.30 L Hgb 13.1 Hct 40.2 MCV 93.5 MCH 30.5 MCHC 32.6 RDW 14.3 RDW Differential 47.6 H Plt Count 204 MPV 10.9 Immature Gran % (Auto) 0.300 Neut % (Auto) 88.7 H Lymph % (Auto) 6.4 L [place] % (Auto) 4.2 Eos % (Auto) 0.3 Baso % (Auto) 0.1 Absolute Neuts (auto) 13.0 H Absolute Lymphs (auto) 0.94 Total Counted Not Reportable Sodium 140 Potassium 3.6 Chloride 105 Carbon Dioxide 26.0 Anion Gap 9 BUN 14 Creatinine 1.03 Estim Creat Clear Calc 55.06 Est GFR (MDRD) Af Amer 90 Est GFR (MDRD) Non-Af 75 BUN/Creatinine Ratio 13.6 Glucose 140 H Lactic Acid Calcium 7.9 L Ionized Calcium Troponin I < 0.015 B-Natriuretic Peptide 02/16/19 02/16/19 02/16/19 05:16 09:00 09:00 WBC RBC Hgb Hct MCV MCH MCHC RDW RDW Differential Plt Count MPV Immature Gran % (Auto) Neut % (Auto) Lymph % (Auto) [place] % (Auto) Eos % (Auto) Baso % (Auto) Absolute Neuts (auto) Absolute Lymphs (auto) Total Counted Sodium Potassium Chloride Carbon Dioxide Anion Gap BUN Creatinine Estim Creat Clear Calc Est GFR (MDRD) Af Amer Est GFR (MDRD) Non-Af BUN/Creatinine Ratio Glucose Lactic Acid Calcium Ionized Calcium Pending Troponin I Pending B-Natriuretic Peptide 142.8 H Medical Necessity - Tobacco Use Smoking Status: Current some day smoker Assessment/Plan All Active Problems (Last Reviewed 02/16/19 @ 07:39 by Vikram Xie MD) Perforated diverticulum of large intestine (Acute) Chest pain at rest (Acute) 78-year-old male status post sigmoid colectomy for perforated sigmoid diverticulitis 1. Patient had hypoxia and chest pain this morning. Hospitalist was consulted. Chest x-ray was obtained and troponins were obtained as well as EKG. Chest x- ray read is pending. Fluids were turned down. Troponin was negative. 2. Patient is not having any bowel function yet. Postoperative ileus. Await bowel function before starting a diet. 3. At this time incisions are clean dry and intact with no erythema or drainage. Continue antibiotics until white count normalizes. Encouraged ambulation and incentive spirometer. Start Lovenox and PPI. 4. Patient does have alcohol history and Ativan was ordered. Osbaldo Greenwood MD Pager: [facility] [address] [place] [address], [address] [place] [address] Office:
[2019-02-16] MEDS: Bisoprolol Fumarate 5 MG Tablet 10 MG PO (10:39)
[2019-02-16] MEDS: Allopurinol 300 MG Tablet PO (10:39)
[2019-02-16] MEDS: hydroCHLOROthiazide 6.25mg TAB 6.25 MG PO (10:40)
[2019-02-16] MEDS: amLODIPine 10 MG Tablet PO (10:40)
[2019-02-16] MEDS: Pantoprazole Sodium 40 MG Tablet PO (10:40)
[2019-02-16] MEDS: Aspirin 81 MG TAB.CHEW PO (10:40)
[2019-02-16] MEDS: Enoxaparin 40 MG/0.4 ML Syringe SC (10:40)
--- NOTE | 2019-02-16 11:25 | CASEMGMT ---
RN JAMES Face to Face with patient for initial transition planning/care coordination assessment. RN CM introduced self and role at [facility]. Patient sitting in chair, alert and oriented, family at bedside. Patient willing to participate in assessment and is able to answer all questions appropriately. Care providers, pharmacy, and demographics verified. Patient wishes to discharge home, denies need for home health at this time. Patient states he has no further needs or concerns at this time. CM to follow for discharge planning needs that may arise. PCP: Miguel Ángel Specialists: Timo Alegria Pharmacy: [facility] Insurance: [employer] [facility] Prescription Benefit: yes Living Will/HPOA: Yes, son Fidel Flanagan LNOK: son, daughter, Living Arrangements: Patient lives with in 1 story home. Patient independent at home. Transportation: self/family DME/HHC: None Disposition Plan: Patient to discharge home with family support and follow-up plans in place. Paula MOLINA, RN, CM
--- NOTE | 2019-02-16 11:49 | NURSING ---
female visitor at bedside. reports pt drinks both beer and mixed drinks every night. does not clarify how much/big/many. female educated on s&s of ETOH withdrawal and to inform nursing if he starts to display any.
[2019-02-16] MEDS: Morphine 2 MG/ML Syringe IV (16:28)
[2019-02-16] MEDS: chlordiazePOXIDE 25 MG Capsule PO (17:23)
[2019-02-16] MEDS: Acetaminophen 325 MG Tablet 650 MG PO (17:23)
--- NOTE | 2019-02-16 17:48 | PN_ITS ---
Patient Problems: Active and Suspected Problems (Last Reviewed 02/16/19 @ 07:39 by Vikram Xie MD) Perforated diverticulum of large intestine (Acute) Chest pain at rest (Acute) Subjective: Patient was seen and examined today, I had a discussion with nursing about his care, nursing feels that the patient is appearing to be sedated and wonders whether he could use less IV Valium or the IV Valium could be stopped. I have no clear indication that the patient has a severe alcohol problem, I talked with his outside his room, it is unclear how much the patient really drinks on a daily basis. Patient's states that she has never seen the patient go through alcohol withdrawal. Patient complains of some upper chest discomfort, he is vague about what it feels like, patient's cardiac enzymes are unremarkable, his echocardiogram showed a normal EF. I think it is possible that the patient is having abdominal distention and it is causing some diaphragmatic irritation. - Physical Exam General: Alert, Oriented x3, Cooperative, No apparent distress, Well developed, Well nourished HEENT: Atraumatic, PERRLA, EOMI, Normocephalic Oral: Moist Mucosa Neck: Supple, No JVD, Trachea Midline, Thyroid Normal Size and Texture Lungs: Clear to auscultation, Normal air movement, No rhonchi, No wheeze, No rales Cardiovascular: Regular rate, Regular Rhythm, Normal S1, Normal S2, No murmurs, No Ectopic Activity Abdomen: Hypoactive Bowel Sounds, Distended Extremities: No clubbing, No cyanosis, No edema, Capillary Refill Less than 3 Seconds Skin: No rashes, No breakdown Musculoskeletal: No Tenderness to Palpation of Joints or Extremities Neurological: Cranial nerves II-XII grossly intact, Neuro grossly intact, Sensory exam intact to light touch and pain, Coordination normal Psych/Mental Status: Normal Affect, Appropriate, Alert and oriented to time, place, person, mood and affect Vital Signs Temp Pulse Resp BP Pulse Ox 98.9 F 77 22 H 137/77 H 94 02/16/19 16:20 02/16/19 16:20 02/16/19 16:20 02/16/19 16:20 02/16/19 16:20 Oxygen Flow Rate (L/min) 3 Oxygen Delivery Method Nasal Cannula Weight: 100 kg Body Mass Index (BMI) 35.6 Intake and Output for Last 24 Hours 02/14/19 02/15/19 02/16/19 23:59 23:59 23:59 Intake Total 2700 / 2700 2853 / 2853 Output Total 450 / 450 1400 / 1400 Balance 2250 / 2250 1453 / 1453 Laboratory Tests Past 24 Hrs 02/15/19 02/16/19 02/16/19 19:25 05:16 05:16 WBC 14.6 H RBC 4.30 L Hgb 13.1 Hct 40.2 MCV 93.5 MCH 30.5 MCHC 32.6 RDW 14.3 RDW Differential 47.6 H Plt Count 204 MPV 10.9 Immature Gran % (Auto) 0.300 Neut % (Auto) 88.7 H Lymph % (Auto) 6.4 L [place] % (Auto) 4.2 Eos % (Auto) 0.3 Baso % (Auto) 0.1 Absolute Neuts (auto) 13.0 H Absolute Lymphs (auto) 0.94 Total Counted Not Reportable Sodium 140 Potassium 3.6 Chloride 105 Carbon Dioxide 26.0 Anion Gap 9 BUN 14 Creatinine 1.03 Estim Creat Clear Calc 55.06 Est GFR (MDRD) Af Amer 90 Est GFR (MDRD) Non-Af 75 BUN/Creatinine Ratio 13.6 Glucose 140 H Lactic Acid 1.7 Calcium 7.9 L Ionized Calcium Troponin I B-Natriuretic Peptide 02/16/19 02/16/19 02/16/19 05:16 05:16 09:00 WBC RBC Hgb Hct MCV MCH MCHC RDW RDW Differential Plt Count MPV Immature Gran % (Auto) Neut % (Auto) Lymph % (Auto) [place] % (Auto) Eos % (Auto) Baso % (Auto) Absolute Neuts (auto) Absolute Lymphs (auto) Total Counted Sodium Potassium Chloride Carbon Dioxide Anion Gap BUN Creatinine Estim Creat Clear Calc Est GFR (MDRD) Af Amer Est GFR (MDRD) Non-Af BUN/Creatinine Ratio Glucose Lactic Acid Calcium Ionized Calcium Troponin I < 0.015 < 0.015 B-Natriuretic Peptide 142.8 H 02/16/19 02/16/19 09:00 12:00 WBC RBC Hgb Hct MCV MCH MCHC RDW RDW Differential Plt Count MPV Immature Gran % (Auto) Neut % (Auto) Lymph % (Auto) [place] % (Auto) Eos % (Auto) Baso % (Auto) Absolute Neuts (auto) Absolute Lymphs (auto) Total Counted Sodium Potassium Chloride Carbon Dioxide Anion Gap BUN Creatinine Estim Creat Clear Calc Est GFR (MDRD) Af Amer Est GFR (MDRD) Non-Af BUN/Creatinine Ratio Glucose Lactic Acid Calcium Ionized Calcium Pending Troponin I < 0.015 B-Natriuretic Peptide Medical Necessity - Tobacco Use Smoking Status: Current some day smoker Assessment/Plan All Active Problems (Last Reviewed 02/16/19 @ 07:39 by Vikram Xie MD) Perforated diverticulum of large intestine (Acute) Chest pain at rest (Acute) #1 upper chest discomfort-etiology unclear at this point, I think it is unlikely that this is anginal in nature, continue to observe the patient on telemetry #2 hypoxia-I think it is likely this is secondary to atelectasis and impaired respiration due to abdominal distention-continue to support the patient on supplemental oxygen #3 ileus #4 status post sigmoid colectomy for perforated sigmoid diverticulitis-postop day #1 #5 hypertension-I have decided to take the patient off his hydrochlorothiazide, he will continue with Norvasc #6 hyperlipidemia-I decided to take the patient off Lipitor and wait until the patient resumes a full diet to start back on his cholesterol medication. It is hard to determine that the patient has a significant drinking issue, I ta lked with the at length outside of his room, she was vague about exactly how much she drinks on a daily basis, she states that he only drinks 2-3 drinks at home per day. I have decided to take him off programmed IV Ativan and substitute p.o. Librium and use IV Ativan on a as needed basis. Code Visit Inpatient E&M: 27510 Subs Hosp L2
[2019-02-17] VITALS (10 sets, daily range): BP systolic 116–136; BP diastolic 70–86; PULSE 60–76; RESP 20–22; TEMP 36.6–37.2; O2SAT 93–97
[2019-02-17] MEDS: 0.9% NaCl Peripheral Flush Adult/Peds IV ×2 (00:12→08:57)
[2019-02-17] MEDS: Ondansetron 4 MG/2 ML Vial IV ×2 (00:12→08:57)
[2019-02-17] MEDS: chlordiazePOXIDE 25 MG Capsule PO ×3 (00:24→12:32)
[2019-02-17] MEDS: Dext 5%-0.45% NS 1,000 ML 60 ML IV ×2 (00:27→16:36)
[2019-02-17 05:58] LABS: Absolute Lymphocyte Count 0.99 X10^3/ul (0.83-4.51); Absolute Neutrophil Count 12.8 X10^3/uL (2.0-7.7); Basophil# 0.02 X10^3/uL; Basophil% 0.1 % (0-1); Eosinophil# 0.17 X10^3/uL; Eosinophils% 1.1 % (0-5); Hematocrit 40.5 % (40-54); Lymphocyte # 0.99 X10^3/ul (4.0); Lymphocyte % 6.7 % (19-41); Mean Corp Hgb Conc 32.1 g/gl (32-36); Mean Corpuscular Hgb 30.4 pg (27.0-32.0); Mean Corpuscular Volume 94.8 fL (80-94); Mean Platelet Vol. 10.6 fl (6.2-12.0); Monocyte# 0.73 X10^3/uL; Monocyte% 4.9 % (0-10); Neutrophil # 12.81 X10^3/uL (2.7-7.7); Neutrophil % 86.7 % (47-70); Platelet Count 209 K/mm3 (150-450); RBC Distribution Width CV 14.3 % (11.6-14.6); RBC Distribution Width SD 47.4 fl (35.1-43.9); Red Blood Count 4.27 M/mm3 (4.6-6.2); White Blood Count 14.8 K/mm3 (4.4-11.0)
[2019-02-17 06:08] LABS: POSITIVE COUNT NO; POSITIVE DIFFERENTIAL NO; POSITIVE MORPHOLOGY NO
[2019-02-17 06:20] LABS: Anion Gap 7 (5-15); BUN 9 mg/dL (7-18); Calcium,Total 8.4 mg/dL (8.5-10.1); Chloride 105 mmol/L (98-107); Cholesterol 101 mg/dL (200); EST Glomerular Filtration Rate 87 mL/min (>60); Est Glom Filt Rate - Afr Amer 105 mL/min (>60); Estimated Creatinine Clearance 63.01 ml/min; Glucose 117 mg/dL (74-106); High Density Lipoprotein 28 mg/dL; Potassium 3.5 mmol/L (3.5-5.1); Sodium Level 139 mmol/L (136-145); Triglycerides 217 mg/dL; Very Low Density Lipoprotein 43 mg/dL (5-40)
[2019-02-17] MEDS: Piperacil/Tazobactam 3.375 GM/50 ML ML IV ×3 (06:23→21:26)
--- NOTE | 2019-02-17 08:53 | PCM.PN.SRG ---
Patient Problems: Active and Suspected Problems (Last Reviewed 02/16/19 @ 07:39 by Vikram Xie MD) Perforated diverticulum of large intestine (Acute) Chest pain at rest (Acute) Subjective: Patient reports his pain is well controlled. He has started passing a small amount of flatus. He did have a small amount of nausea but no vomiting. - Physical Exam General: Alert, Oriented x3 Neck: No JVD Lungs: Normal air movement Abdomen: Soft, Distended Vital Signs Temp Pulse Resp BP Pulse Ox 97.9 F 64 20 H 125/72 H 93 02/17/19 02:20 02/17/19 06:46 02/17/19 02:20 02/17/19 02:20 02/17/19 02:20 Oxygen Flow Rate (L/min) 3 Oxygen Delivery Method Nasal Cannula Weight: 220 lb 7.396 oz Body Mass Index (BMI) 35.6 Intake and Output for Last 24 Hours 02/15/19 02/16/19 02/17/19 23:59 23:59 23:59 Intake Total 2700 / 2700 3692 / 3692 379 / 379 Output Total 450 / 450 1525 / 1525 400 / 400 Balance 2250 / 2250 2167 / 2167 -21 / -21 Laboratory Tests Past 24 Hrs 02/16/19 02/16/19 02/16/19 09:00 09:00 12:00 WBC RBC Hgb Hct MCV MCH MCHC RDW RDW Differential Plt Count MPV Immature Gran % (Auto) Neut % (Auto) Lymph % (Auto) [place] % (Auto) Eos % (Auto) Baso % (Auto) Absolute Neuts (auto) Absolute Lymphs (auto) Total Counted Sodium Potassium Chloride Carbon Dioxide Anion Gap BUN Creatinine Estim Creat Clear Calc Est GFR (MDRD) Af Amer Est GFR (MDRD) Non-Af BUN/Creatinine Ratio Glucose Calcium Ionized Calcium Pending Troponin I < 0.015 < 0.015 Triglycerides Cholesterol LDL Cholesterol VLDL Cholesterol HDL Cholesterol 02/17/19 02/17/19 05:40 05:40 WBC 14.8 H RBC 4.27 L Hgb 13.0 Hct 40.5 MCV 94.8 H MCH 30.4 MCHC 32.1 RDW 14.3 RDW Differential 47.4 H Plt Count 209 MPV 10.6 Immature Gran % (Auto) 0.500 Neut % (Auto) 86.7 H Lymph % (Auto) 6.7 L [place] % (Auto) 4.9 Eos % (Auto) 1.1 Baso % (Auto) 0.1 Absolute Neuts (auto) 12.8 H Absolute Lymphs (auto) 0.99 Total Counted Not Reportable Sodium 139 Potassium 3.5 Chloride 105 Carbon Dioxide 27.0 Anion Gap 7 BUN 9 Creatinine 0.90 Estim Creat Clear Calc 63.01 Est GFR (MDRD) Af Amer 105 Est GFR (MDRD) Non-Af 87 BUN/Creatinine Ratio 10.0 Glucose 117 H Calcium 8.4 L Ionized Calcium Troponin I Triglycerides 217 H Cholesterol 101 LDL Cholesterol 30 VLDL Cholesterol 43 H HDL Cholesterol 28 L Medical Necessity - Tobacco Use Smoking Status: Current some day smoker Assessment/Plan All Active Problems (Last Reviewed 02/16/19 @ 07:39 by Vikram Xie MD) Perforated diverticulum of large intestine (Acute) Chest pain at rest (Acute) 78-year-old male status post sigmoid colectomy for perforated diverticulitis 1. The patient is having a small amount of flatus and some nausea he is still significantly distended. Keep n.p.o. on sips and chips until he has significant bowel function and his distention decreases. His white count is still elevated and I will continue Zosyn. His incisions are clean dry and intact with no signs of infection. 2. I encouraged ambulation and incentive spirometry. Patient is on Lovenox and has SCDs. Osbaldo Greenwood MD Pager: [facility] [address] [place] [address], [address] [place] [address] Office:
[2019-02-17] MEDS: amLODIPine 10 MG Tablet PO (08:57)
[2019-02-17] MEDS: Aspirin 81 MG TAB.CHEW PO (08:57)
[2019-02-17] MEDS: Pantoprazole Sodium 40 MG Tablet PO (08:57)
[2019-02-17] MEDS: Acetaminophen 325 MG Tablet 650 MG PO ×2 (08:57→15:06)
[2019-02-17] MEDS: Enoxaparin 40 MG/0.4 ML Syringe SC (08:57)
--- NOTE | 2019-02-17 08:57 | PN.SURG_ITS ---
Patient Problems: Active and Suspected Problems (Last Reviewed 02/16/19 @ 07:39 by Vikram Xie MD) Perforated diverticulum of large intestine (Acute) Chest pain at rest (Acute) Subjective: Patient reports his pain is well controlled. He has started passing a small amount of flatus. He did have a small amount of nausea but no vomiting. - Physical Exam General: Alert, Oriented x3 Neck: No JVD Lungs: Normal air movement Abdomen: Soft, Distended Vital Signs Temp Pulse Resp BP Pulse Ox 97.9 F 64 20 H 125/72 H 93 02/17/19 02:20 02/17/19 06:46 02/17/19 02:20 02/17/19 02:20 02/17/19 02:20 Oxygen Flow Rate (L/min) 3 Oxygen Delivery Method Nasal Cannula Weight: 220 lb 7.396 oz Body Mass Index (BMI) 35.6 Intake and Output for Last 24 Hours 02/15/19 02/16/19 02/17/19 23:59 23:59 23:59 Intake Total 2700 / 2700 3692 / 3692 379 / 379 Output Total 450 / 450 1525 / 1525 400 / 400 Balance 2250 / 2250 2167 / 2167 -21 / -21 Laboratory Tests Past 24 Hrs 02/16/19 02/16/19 02/16/19 09:00 09:00 12:00 WBC RBC Hgb Hct MCV MCH MCHC RDW RDW Differential Plt Count MPV Immature Gran % (Auto) Neut % (Auto) Lymph % (Auto) [place] % (Auto) Eos % (Auto) Baso % (Auto) Absolute Neuts (auto) Absolute Lymphs (auto) Total Counted Sodium Potassium Chloride Carbon Dioxide Anion Gap BUN Creatinine Estim Creat Clear Calc Est GFR (MDRD) Af Amer Est GFR (MDRD) Non-Af BUN/Creatinine Ratio Glucose Calcium Ionized Calcium Pending Troponin I < 0.015 < 0.015 Triglycerides Cholesterol LDL Cholesterol VLDL Cholesterol HDL Cholesterol 02/17/19 02/17/19 05:40 05:40 WBC 14.8 H RBC 4.27 L Hgb 13.0 Hct 40.5 MCV 94.8 H MCH 30.4 MCHC 32.1 RDW 14.3 RDW Differential 47.4 H Plt Count 209 MPV 10.6 Immature Gran % (Auto) 0.500 Neut % (Auto) 86.7 H Lymph % (Auto) 6.7 L [place] % (Auto) 4.9 Eos % (Auto) 1.1 Baso % (Auto) 0.1 Absolute Neuts (auto) 12.8 H Absolute Lymphs (auto) 0.99 Total Counted Not Reportable Sodium 139 Potassium 3.5 Chloride 105 Carbon Dioxide 27.0 Anion Gap 7 BUN 9 Creatinine 0.90 Estim Creat Clear Calc 63.01 Est GFR (MDRD) Af Amer 105 Est GFR (MDRD) Non-Af 87 BUN/Creatinine Ratio 10.0 Glucose 117 H Calcium 8.4 L Ionized Calcium Troponin I Triglycerides 217 H Cholesterol 101 LDL Cholesterol 30 VLDL Cholesterol 43 H HDL Cholesterol 28 L Medical Necessity - Tobacco Use Smoking Status: Current some day smoker Assessment/Plan All Active Problems (Last Reviewed 02/16/19 @ 07:39 by Vikram Xie MD) Perforated diverticulum of large intestine (Acute) Chest pain at rest (Acute) 78-year-old male status post sigmoid colectomy for perforated diverticulitis 1. The patient is having a small amount of flatus and some nausea he is still significantly distended. Keep n.p.o. on sips and chips until he has significant bowel function and his distention decreases. His white count is still elevated and I will continue Zosyn. His incisions are clean dry and intact with no signs of infection. 2. I encouraged ambulation and incentive spirometry. Patient is on Lovenox and has SCDs. Osbaldo Greenwood MD Pager: [facility] [address] [place] [address], [address] [place] [address] Office:
--- NOTE | 2019-02-17 15:20 | PCM.PROGNOTE ---
Patient Problems: Active and Suspected Problems (Last Reviewed 02/16/19 @ 07:39 by Vikram Xie MD) Perforated diverticulum of large intestine (Acute) Chest pain at rest (Acute) Subjective: Patient was seen and examined today, he had a bowel movement today. I do not believe the patient needs ongoing benzodiazepine administration on a program basis, I have changed him today to as needed Librium. I have stopped his IV Ativan. Patient continues to complain of some abdominal bloating but he would like to eat if possible, general surgery does not want him to have clear liquids as yet. Patient has no complaints of any chest pain or shortness of breath, we are presently trying to wean his oxygen off. - Physical Exam General: Alert, Oriented x3, Cooperative, No apparent distress, Well developed, Well nourished HEENT: Atraumatic, PERRLA, EOMI, Normocephalic Oral: Moist Mucosa Neck: Supple, No JVD, Trachea Midline, Thyroid Normal Size and Texture Lungs: Clear to auscultation, Normal air movement, No rhonchi, No wheeze, No rales Cardiovascular: Regular rate, Regular Rhythm, Normal S1, Normal S2, No murmurs, No Ectopic Activity Abdomen: Bowel Sounds Present, Soft, Hypoactive Bowel Sounds, Distended Extremities: No edema, Capillary Refill Less than 3 Seconds Skin: No rashes, No breakdown Musculoskeletal: No Tenderness to Palpation of Joints or Extremities Neurological: Cranial nerves II-XII grossly intact, Neuro grossly intact, Sensory exam intact to light touch and pain Psych/Mental Status: Normal Affect, Appropriate, Alert and oriented to time, place, person, mood and affect Vital Signs Temp Pulse Resp BP Pulse Ox 98.0 F 64 22 H 116/70 94 02/17/19 12:35 02/17/19 12:35 02/17/19 12:35 02/17/19 12:35 02/17/19 12:35 Oxygen Flow Rate (L/min) 2 Oxygen Delivery Method Nasal Cannula Weight: 100 kg Body Mass Index (BMI) 35.6 Intake and Output for Last 24 Hours 02/15/19 02/16/19 02/17/19 23:59 23:59 23:59 Intake Total 2700 / 2700 3692 / 3692 1015 / 1015 Output Total 450 / 450 1525 / 1525 950 / 950 Balance 2250 / 2250 2167 / 2167 65 / 65 Laboratory Tests Past 24 Hrs 02/17/19 02/17/19 05:40 05:40 WBC 14.8 H RBC 4.27 L Hgb 13.0 Hct 40.5 MCV 94.8 H MCH 30.4 MCHC 32.1 RDW 14.3 RDW Differential 47.4 H Plt Count 209 MPV 10.6 Immature Gran % (Auto) 0.500 Neut % (Auto) 86.7 H Lymph % (Auto) 6.7 L [place] % (Auto) 4.9 Eos % (Auto) 1.1 Baso % (Auto) 0.1 Absolute Neuts (auto) 12.8 H Absolute Lymphs (auto) 0.99 Total Counted Not Reportable Sodium 139 Potassium 3.5 Chloride 105 Carbon Dioxide 27.0 Anion Gap 7 BUN 9 Creatinine 0.90 Estim Creat Clear Calc 63.01 Est GFR (MDRD) Af Amer 105 Est GFR (MDRD) Non-Af 87 BUN/Creatinine Ratio 10.0 Glucose 117 H Calcium 8.4 L Triglycerides 217 H Cholesterol 101 LDL Cholesterol 30 VLDL Cholesterol 43 H HDL Cholesterol 28 L Medical Necessity - Tobacco Use Smoking Status: Current some day smoker Assessment/Plan All Active Problems (Last Reviewed 02/16/19 @ 07:39 by Vikram Xie MD) Perforated diverticulum of large intestine (Acute) Chest pain at rest (Acute) #1 upper chest discomfort-etiology unclear at this point, I think it is unlikely that this is anginal in nature, this has resolved at this time, I will stop the patient's telemetry #2 hypoxia-I think it is likely this is secondary to atelectasis and impaired respiration due to abdominal distention-continue to support the patient on supplemental oxygen, wean if possible #3 ileus #4 status post sigmoid colectomy for perforated sigmoid diverticulitis-postop day #2 #5 hypertension- he will continue with Norvasc #6 hyperlipidemia-again patient's lipid medications will be held until he is able to eat Again, patient's programmed benzodiazepines have been stopped Code Visit Inpatient E&M: 05771 Subs Hosp L2
[2019-02-18] VITALS (12 sets, daily range): BP systolic 123–141; BP diastolic 72–77; PULSE 62–67; RESP 18–20; TEMP 37–37.6; O2SAT 76–95
[2019-02-18] MEDS: Piperacil/Tazobactam 3.375 GM/50 ML ML IV ×3 (05:34→22:58)
--- NOTE | 2019-02-18 05:55 | RAD_ITS ---
STUDY: X-RAY - ABDOMEN/PELVIS REASON FOR EXAM: Male, 78 years old. Postop ileus secondary to sigmoid colectomy. TECHNIQUE: AP supine and upright views of the abdomen and pelvis. COMPARISON: None. FINDINGS: Increased markings at the lung bases suggests bibasilar atelectasis with small bilateral pleural effusions. Dilatation of multiple small bowel loops. A small amount of air is seen within the right hemicolon. Fecal material is seen in the left hemicolon. This is suggestive of ileus. Follow-up is recommended. There is no demonstrated free abdominal air. The visualized liver, spleen and kidneys are grossly normal in size and morphology. There are calcified phleboliths in the pelvis. Normal visualized osseous structures. RAD/Abd Inc Decub and/or Erect IMPRESSION: Postoperative dilated small bowel loops with a small amount of air and fecal material in the colon. This may represent an ileus pattern although an early small bowel obstruction cannot be excluded. Further follow-up is recommended. Electronically Signed: Marcus Villarreal, at 11:21 EDT , Service support ,
[2019-02-18 06:41] LABS: Absolute Lymphocyte Count 0.95 X10^3/ul (0.83-4.51); Absolute Neutrophil Count 9.2 X10^3/uL (2.0-7.7); Basophil# 0.02 X10^3/uL; Basophil% 0.2 % (0-1); Eosinophil# 0.22 X10^3/uL; Hematocrit 40.2 % (40-54); Hemoglobin 12.9 g/dl (13.0-16.5); Lymphocyte # 0.95 X10^3/ul (4.0); Lymphocyte % 8.5 % (19-41); Mean Corp Hgb Conc 32.1 g/gl (32-36); Mean Corpuscular Hgb 30.4 pg (27.0-32.0); Mean Corpuscular Volume 94.8 fL (80-94); Mean Platelet Vol. 10.5 fl (6.2-12.0); Monocyte# 0.76 X10^3/uL; Monocyte% 6.8 % (0-10); Neutrophil # 9.21 X10^3/uL (2.7-7.7); Neutrophil % 82.2 % (47-70); Platelet Count 233 K/mm3 (150-450); RBC Distribution Width CV 13.9 % (11.6-14.6); RBC Distribution Width SD 46.4 fl (35.1-43.9); Red Blood Count 4.24 M/mm3 (4.6-6.2); White Blood Count 11.2 K/mm3 (4.4-11.0)
[2019-02-18 06:55] LABS: POSITIVE COUNT NO; POSITIVE DIFFERENTIAL NO; POSITIVE MORPHOLOGY NO
[2019-02-18 06:58] LABS: Anion Gap 5 (5-15); BUN 7 mg/dL (7-18); BUN/Creat Ratio 7.3 RATIO (10-20); Calcium,Total 8.4 mg/dL (8.5-10.1); Chloride 104 mmol/L (98-107); Creatinine, Serum 0.96 mg/dL (0.70-1.30); EST Glomerular Filtration Rate 80 mL/min (>60); Est Glom Filt Rate - Afr Amer 97 mL/min (>60); Estimated Creatinine Clearance 59.07 ml/min; Glucose 106 mg/dL (74-106); Potassium 3.6 mmol/L (3.5-5.1); Sodium Level 140 mmol/L (136-145)
[2019-02-18] MEDS: Aspirin 81 MG TAB.CHEW PO (08:08)
[2019-02-18] MEDS: Pantoprazole Sodium 40 MG Tablet PO (08:08)
[2019-02-18] MEDS: Dext 5%-0.45% NS 1,000 ML 60 ML IV (08:08)
[2019-02-18] MEDS: Enoxaparin 40 MG/0.4 ML Syringe SC (08:08)
[2019-02-18] MEDS: amLODIPine 10 MG Tablet PO (08:08)
--- NOTE | 2019-02-18 11:29 | PCM.PN.SRG ---
Patient Problems: Active and Suspected Problems (Last Reviewed 02/16/19 @ 07:39 by Vikram Xie MD) Perforated diverticulum of large intestine (Acute) Chest pain at rest (Acute) Subjective: Patient is feeling a little better. No significant flatus since yesterday. No nausea or vomiting overnight. - Physical Exam General: Alert, Oriented x3 Lungs: Normal air movement, No rhonchi Abdomen: Soft Vital Signs Temp Pulse Resp BP Pulse Ox 98.6 F 67 18 123/72 H 92 02/18/19 08:15 02/18/19 08:15 02/18/19 08:15 02/18/19 08:15 02/18/19 10:45 Oxygen Flow Rate (L/min) 1 Oxygen Delivery Method Room Air Weight: 220 lb 7.396 oz Body Mass Index (BMI) 35.6 Intake and Output for Last 24 Hours 02/16/19 02/17/19 02/18/19 23:59 23:59 23:59 Intake Total 3692 / 3692 1390 / 1390 997 / 997 Output Total 1525 / 1525 950 / 950 0 / 0 Balance 2167 / 2167 440 / 440 997 / 997 Laboratory Tests Past 24 Hrs 02/16/19 02/18/19 02/18/19 09:00 06:08 06:08 WBC 11.2 H RBC 4.24 L Hgb 12.9 L Hct 40.2 MCV 94.8 H MCH 30.4 MCHC 32.1 RDW 13.9 RDW Differential 46.4 H Plt Count 233 MPV 10.5 Immature Gran % (Auto) 0.300 Neut % (Auto) 82.2 H Lymph % (Auto) 8.5 L [place] % (Auto) 6.8 Eos % (Auto) 2.0 Baso % (Auto) 0.2 Absolute Neuts (auto) 9.2 H Absolute Lymphs (auto) 0.95 Total Counted Not Reportable Sodium 140 Potassium 3.6 Chloride 104 Carbon Dioxide 31.0 Anion Gap 5 BUN 7 Creatinine 0.96 Estim Creat Clear Calc 59.07 Est GFR (MDRD) Af Amer 97 Est GFR (MDRD) Non-Af 80 BUN/Creatinine Ratio 7.3 L Glucose 106 Calcium 8.4 L Ionized Calcium 4.9 Medical Necessity - Tobacco Use Smoking Status: Current some day smoker Assessment/Plan All Active Problems (Last Reviewed 02/16/19 @ 07:39 by Vikram Xie MD) Perforated diverticulum of large intestine (Acute) Chest pain at rest (Acute) 78-year-old male status post sigmoid colectomy for perforated diverticulitis 1. Patient seems to be turning the corner. His white blood count has decreased. His abdomen seems much softer and less distended today. I got a KUB this morning to see if he still has significantly dilated small bowel. After reviewing the KUB it appears that he does have significantly dilated small bowel yet. I will wait for more significant flatus as well as an and KUB before starting a diet but I suspect this will likely be tomorrow. I recommended continuing ambulation. 2. Continue antibiotics until white count has normalized. 3. Appreciate hospitalist management of medical issues. 4. Encouraged ambulation and incentive spirometer. 5. KUB in the morning and possibly start diet. Osbaldo Greenwood MD Pager: [facility] [address] [place] [address], [address] [place] [address] Office:
--- NOTE | 2019-02-18 16:56 | NURSING ---
Addendum entered by Rosita Del Rosario 02/18/19 17:02: Dr. Chaney notified face to face, order for CXR obtained and entered Original Note: SPOT checked patient's oxygen d/t him having pale appearance, reporting weakness. Had previously been sleeping. Oxygen= 76% on Room air. I placed on oxygen and had patient perform incentive spirometry. Now @ 93% on 2L
--- NOTE | 2019-02-18 17:05 | RAD_ITS ---
HISTORY:SOB, LOW SPO2 SOB, LOW SPO2 EXAM: XR Chest 1 View: COMPARISON: February 16, 2019 FINDINGS: # of images incl. paperwork: 1 Limited inspiration LINES/DEVICES: None. LUNGS: Bibasilar atelectasis. Question small right pleural effusion No pneumothorax. MEDIASTINUM AND CARDIOVASCULAR STRUCTURES: Cardiomegaly BONES AND SOFT TISSUES: Unremarkable. RAD/Chest 1 View (Portable) IMPRESSION: Bibasilar atelectasis and question small right pleural effusion Cardiomegaly Limited inspiration at 1845 Reported and signed by: Davina Jenkins DO Electronically Signed: Davina Jenkins DO at 18:44 EDT Tel , Service support ,
--- NOTE | 2019-02-18 18:05 | PCM.PROGNOTE ---
Patient Problems: Active and Suspected Problems (Last Reviewed 02/16/19 @ 07:39 by Vikrma Xie MD) Perforated diverticulum of large intestine (Acute) Chest pain at rest (Acute) Subjective: Patient was seen and examined today, initially he was able to be weaned off oxygen but later on this afternoon he was noted to have a low pulse ox on room air and was placed back on oxygen. I am puzzled as to why the patient's pulse ox was 76 on room air, nursing states that the patient was asleep so he may have an undiagnosed sleep apnea. Chest x-ray was performed this afternoon, I looked at the images and do not see anything that looks like acute infiltrate. - Physical Exam General: Alert, Oriented x3, Cooperative, No apparent distress, Well developed HEENT: Atraumatic, PERRLA, EOMI, Normocephalic Oral: Moist Mucosa Neck: Supple, No JVD, Trachea Midline, Thyroid Normal Size and Texture Lungs: Clear to auscultation, Normal air movement, No rhonchi, No wheeze, No rales Cardiovascular: Regular rate, Regular Rhythm, Normal S1, Normal S2, No murmurs, No Ectopic Activity, PMI Normal, No rub noted, No Gallop Abdomen: Bowel Sounds Present, Soft, Hypoactive Bowel Sounds Extremities: No clubbing, No cyanosis, No edema, Capillary Refill Less than 3 Seconds Skin: No rashes, No breakdown Musculoskeletal: No Tenderness to Palpation of Joints or Extremities Neurological: Cranial nerves II-XII grossly intact, Neuro grossly intact, Sensory exam intact to light touch and pain, Coordination normal Psych/Mental Status: Normal Affect, Appropriate, Alert and oriented to time, place, person, mood and affect Vital Signs Temp Pulse Resp BP Pulse Ox 98.8 F 67 18 136/74 H 93 02/18/19 14:13 02/18/19 14:13 02/18/19 14:13 02/18/19 14:13 02/18/19 16:45 Oxygen Flow Rate (L/min) 2 Oxygen Delivery Method Nasal Cannula Weight: 100 kg Body Mass Index (BMI) 35.6 Intake and Output for Last 24 Hours 02/16/19 02/17/19 02/18/19 23:59 23:59 23:59 Intake Total 3692 / 3692 1390 / 1390 2223 / 2223 Output Total 1525 / 1525 950 / 950 0 / 0 Balance 2167 / 2167 440 / 440 2223 / 2223 Laboratory Tests Past 24 Hrs 02/16/19 02/18/19 02/18/19 09:00 06:08 06:08 WBC 11.2 H RBC 4.24 L Hgb 12.9 L Hct 40.2 MCV 94.8 H MCH 30.4 MCHC 32.1 RDW 13.9 RDW Differential 46.4 H Plt Count 233 MPV 10.5 Immature Gran % (Auto) 0.300 Neut % (Auto) 82.2 H Lymph % (Auto) 8.5 L [place] % (Auto) 6.8 Eos % (Auto) 2.0 Baso % (Auto) 0.2 Absolute Neuts (auto) 9.2 H Absolute Lymphs (auto) 0.95 Total Counted Not Reportable Sodium 140 Potassium 3.6 Chloride 104 Carbon Dioxide 31.0 Anion Gap 5 BUN 7 Creatinine 0.96 Estim Creat Clear Calc 59.07 Est GFR (MDRD) Af Amer 97 Est GFR (MDRD) Non-Af 80 BUN/Creatinine Ratio 7.3 L Glucose 106 Calcium 8.4 L Ionized Calcium 4.9 Medical Necessity - Tobacco Use Smoking Status: Current some day smoker Assessment/Plan All Active Problems (Last Reviewed 02/16/19 @ 07:39 by Vikram Xie MD) Perforated diverticulum of large intestine (Acute) Chest pain at rest (Acute) #1 upper chest discomfort-etiology unclear at this point, I think it is unlikely that this is anginal in nature, this has resolved at this time #2 hypoxia-I think it is likely this is secondary to atelectasis and impaired respiration due to abdominal distention, he may have an element of undiagnosed sleep apnea-continue to support the patient on supplemental oxygen, wean if possible #3 ileus #4 status post sigmoid colectomy for perforated sigmoid diverticulitis-postop day #3 #5 hypertension- he will continue with Norvasc #6 hyperlipidemia-again patient's lipid medications will be held until he is able to eat Code Visit Inpatient E&M: 76962 Subs Hosp L2
[2019-02-19] MEDS: Dext 5%-0.45% NS 1,000 ML 60 ML IV (00:54)
[2019-02-19 02:37] VITALS: BP 134/71; PULSE 60; RESP 16; TEMP 36.8; O2SAT 95
--- NOTE | 2019-02-19 05:55 | RAD_ITS ---
HISTORY: ILEUS ADDITIONAL HISTORY: None. COMPARISON: 02/18/2019 6:30 AM Technique: Supine abdominal radiographs. Number of images including paperwork: 3 FINDINGS: FREE AIR: None detected. BOWEL GAS PATTERN: Multiple dilated loops of small bowel with slight apparent decrease. Gas is again seen in the colon. CALCIFICATIONS: No definite urinary tract calculi. ORGANS: No evidence of organomegaly. SOFT TISSUES: Unremarkable. BONES: No acute skeletal findings. Tubular density projects over the lower lumbar spine and sacrum, uncertain exact location or etiology, unchanged compared to the radiograph from yesterday but not evident on the previous CT.. RAD/Abdomen Single View (Portable) IMPRESSION: Persistent small bowel dilatation, possibly partial obstruction or ileus. Tubular density projects over the lower lumbar spine and sacrum, uncertain exact location or etiology. at 0813 Reported and signed by: Susan Humphreys MD Electronically Signed: Susan Humphreys MD at 8:13 EDT Tel , Service support ,
[2019-02-19 06:21] LABS: Absolute Lymphocyte Count 0.99 X10^3/ul (0.83-4.51); Absolute Neutrophil Count 6.6 X10^3/uL (2.0-7.7); Basophil# 0.02 X10^3/uL; Basophil% 0.2 % (0-1); Eosinophils% 2.3 % (0-5); Hematocrit 37.9 % (40-54); Hemoglobin 12.2 g/dl (13.0-16.5); Lymphocyte # 0.99 X10^3/ul (4.0); Lymphocyte % 11.3 % (19-41); Mean Corp Hgb Conc 32.2 g/gl (32-36); Mean Corpuscular Hgb 30.5 pg (27.0-32.0); Mean Corpuscular Volume 94.8 fL (80-94); Mean Platelet Vol. 10.2 fl (6.2-12.0); Monocyte# 0.92 X10^3/uL; Monocyte% 10.5 % (0-10); Neutrophil # 6.61 X10^3/uL (2.7-7.7); Neutrophil % 75.4 % (47-70); Platelet Count 259 K/mm3 (150-450); RBC Distribution Width CV 13.7 % (11.6-14.6); RBC Distribution Width SD 47.3 fl (35.1-43.9); White Blood Count 8.8 K/mm3 (4.4-11.0)
[2019-02-19 06:28] LABS: POSITIVE COUNT NO; POSITIVE DIFFERENTIAL NO; POSITIVE MORPHOLOGY NO
[2019-02-19 06:35] VITALS: O2SAT 92
[2019-02-19 06:39] LABS: Anion Gap 7 (5-15); BUN 7 mg/dL (7-18); BUN/Creat Ratio 8.7 RATIO (10-20); Calcium,Total 8.3 mg/dL (8.5-10.1); Chloride 104 mmol/L (98-107); EST Glomerular Filtration Rate 99 mL/min (>60); Est Glom Filt Rate - Afr Amer 120 mL/min (>60); Estimated Creatinine Clearance 70.89 ml/min; Glucose 106 mg/dL (74-106); Potassium 3.3 mmol/L (3.5-5.1); Sodium Level 142 mmol/L (136-145)
[2019-02-19 06:45] VITALS: O2SAT 88
[2019-02-19] MEDS: 0.9% NaCl Peripheral Flush Adult/Peds IV (06:56)
[2019-02-19] MEDS: Piperacil/Tazobactam 3.375 GM/50 ML ML IV (06:56)
[2019-02-19 08:21] VITALS: BP 140/78; PULSE 64; RESP 18; TEMP 36.8; O2SAT 92
--- NOTE | 2019-02-19 09:14 | PN.SURG_ITS ---
Patient Problems: Active and Suspected Problems (Last Reviewed 02/16/19 @ 07:39 by Vikram Xie MD) Perforated diverticulum of large intestine (Acute) Chest pain at rest (Acute) Subjective: Patient feels better this morning. He says he is passing copious flatus. He has no nausea or vomiting. His abdominal pain is very well controlled. - Physical Exam General: Alert, Oriented x3 HEENT: Atraumatic Neck: No JVD Lungs: Normal air movement Cardiovascular: Regular rate, Regular Rhythm Abdomen: Soft, Distended, - - Incisions are clean dry and intact with no tom thema or ecchymosis. Vital Signs Temp Pulse Resp BP Pulse Ox 98.2 F 64 18 140/78 H 92 02/19/19 08:21 02/19/19 08:21 02/19/19 08:21 02/19/19 08:21 02/19/19 08:21 Oxygen Flow Rate (L/min) 2 Oxygen Delivery Method Room Air Weight: 220 lb 7.396 oz Body Mass Index (BMI) 35.6 Intake and Output for Last 24 Hours 02/17/19 02/18/19 02/19/19 23:59 23:59 23:59 Intake Total 1390 / 1390 2223 / 2223 1129 / 1129 Output Total 950 / 950 0 / 0 350 / 350 Balance 440 / 440 2223 / 2223 779 / 779 Laboratory Tests Past 24 Hrs 02/16/19 02/19/19 02/19/19 09:00 05:40 05:40 WBC 8.8 RBC 4.00 L Hgb 12.2 L Hct 37.9 L MCV 94.8 H MCH 30.5 MCHC 32.2 RDW 13.7 RDW Differential 47.3 H Plt Count 259 MPV 10.2 Immature Gran % (Auto) 0.300 Neut % (Auto) 75.4 H Lymph % (Auto) 11.3 L [place] % (Auto) 10.5 H Eos % (Auto) 2.3 Baso % (Auto) 0.2 Absolute Neuts (auto) 6.6 Absolute Lymphs (auto) 0.99 Total Counted Not Reportable Sodium 142 Potassium 3.3 L Chloride 104 Carbon Dioxide 31.0 Anion Gap 7 BUN 7 Creatinine 0.80 Estim Creat Clear Calc 70.89 Est GFR (MDRD) Af Amer 120 Est GFR (MDRD) Non-Af 99 BUN/Creatinine Ratio 8.7 L Glucose 106 Calcium 8.3 L Ionized Calcium 4.9 Medical Necessity - Tobacco Use Smoking Status: Current some day smoker Assessment/Plan All Active Problems (Last Reviewed 02/16/19 @ 07:39 by Vikram Xie MD) Perforated diverticulum of large intestine (Acute) Chest pain at rest (Acute) 78-year-old male status post laparoscopic sigmoid colectomy for perforated diverticulitis 1. Patient doing well this morning. He is passing copious flatus. His KUB of seems improved. I will start him on a clear liquid diet and advance his diet tomorrow if he tolerates this. I advised him to stop if he developed any nausea or vomiting. 2. White count is normal today. I will stop Zosyn. 3. Hypokalemia-replaced 4. His incisions are clean dry and intact with no erythema or ecchymosis. I will have the nurses remove the Concrete drain in his lower midline incision. Osbaldo Greenwood MD Pager: [facility] [address] [place] [address], [address] [place] [address] Office:
[2019-02-19] MEDS: Aspirin 81 MG TAB.CHEW PO (09:42)
[2019-02-19] MEDS: amLODIPine 10 MG Tablet PO (10:52)
[2019-02-19] MEDS: Enoxaparin 40 MG/0.4 ML Syringe SC (10:52)
[2019-02-19] MEDS: Pantoprazole Sodium 40 MG Tablet PO (10:52)
--- NOTE | 2019-02-19 13:10 | PCM.PROGNOTE ---
Patient Problems: Active and Suspected Problems (Last Reviewed 02/16/19 @ 07:39 by Vikram Xie MD) Perforated diverticulum of large intestine (Acute) Chest pain at rest (Acute) Subjective: Patient was seen and examined today, he was advanced to a clear liquid diet, I talked with general surgery briefly this morning and asked if it was permissible to change him to a full liquid diet if he tolerated the clear liquid diet at lunch and surgery confirmed that it was okay. Patient's blood pressure is still under adequate control for now. Patient is now on room air. - Physical Exam General: Alert, Oriented x3, Cooperative, No apparent distress, Well developed HEENT: Atraumatic, PERRLA, EOMI, Normocephalic Oral: Moist Mucosa Neck: Supple, No JVD, Negative Carotid Bruits Lungs: Clear to auscultation, Normal air movement, No rhonchi, No wheeze, No rales Cardiovascular: Regular rate, Regular Rhythm, Normal S1, Normal S2, No murmurs, No Ectopic Activity, PMI Normal, No rub noted, No Gallop Abdomen: Bowel Sounds Present, Soft, Non Tender, Hypoactive Bowel Sounds, Distended - Patient has mild abdominal distention, No hernias noted Extremities: No clubbing, No cyanosis, No edema, Capillary Refill Less than 3 Seconds Skin: No rashes, No breakdown Musculoskeletal: No Tenderness to Palpation of Joints or Extremities Neurological: Cranial nerves II-XII grossly intact, Neuro grossly intact, Sensory exam intact to light touch and pain, Coordination normal Psych/Mental Status: Normal Affect, Appropriate, Alert and oriented to time, place, person, mood and affect Vital Signs Temp Pulse Resp BP Pulse Ox 98.2 F 64 18 140/78 H 92 02/19/19 08:21 02/19/19 08:21 02/19/19 08:21 02/19/19 08:21 02/19/19 08:21 Oxygen Flow Rate (L/min) 2 Oxygen Delivery Method Room Air Weight: 100 kg Body Mass Index (BMI) 35.6 Intake and Output for Last 24 Hours 02/17/19 02/18/19 02/19/19 23:59 23:59 23:59 Intake Total 1390 / 1390 2223 / 2223 1129 / 1129 Output Total 950 / 950 0 / 0 350 / 350 Balance 440 / 440 2223 / 2223 779 / 779 Laboratory Tests Past 24 Hrs 02/19/19 02/19/19 05:40 05:40 WBC 8.8 RBC 4.00 L Hgb 12.2 L Hct 37.9 L MCV 94.8 H MCH 30.5 MCHC 32.2 RDW 13.7 RDW Differential 47.3 H Plt Count 259 MPV 10.2 Immature Gran % (Auto) 0.300 Neut % (Auto) 75.4 H Lymph % (Auto) 11.3 L [place] % (Auto) 10.5 H Eos % (Auto) 2.3 Baso % (Auto) 0.2 Absolute Neuts (auto) 6.6 Absolute Lymphs (auto) 0.99 Total Counted Not Reportable Sodium 142 Potassium 3.3 L Chloride 104 Carbon Dioxide 31.0 Anion Gap 7 BUN 7 Creatinine 0.80 Estim Creat Clear Calc 70.89 Est GFR (MDRD) Af Amer 120 Est GFR (MDRD) Non-Af 99 BUN/Creatinine Ratio 8.7 L Glucose 106 Calcium 8.3 L Medical Necessity - Tobacco Use Smoking Status: Current some day smoker Assessment/Plan All Active Problems (Last Reviewed 02/16/19 @ 07:39 by Vikram Xie MD) Perforated diverticulum of large intestine (Acute) Chest pain at rest (Acute) #1 upper chest discomfort-etiology unclear at this point, I think it is unlikely that this is anginal in nature, this has resolved at this time #2 hypoxia-resolved at this time, I feel that this was secondary to atelectasis #3 ileus-improving #4 status post sigmoid colectomy for perforated sigmoid diverticulitis-postop day #4, antibiotics were stopped today #5 hypertension- he will continue with Norvasc #6 hyperlipidemia-again patient's lipid medications will be held, I feel that it is safe to tell the patient to resume his medications as an outpatient #7 hypokalemia-patient was given potassium supplementation today Code Visit Inpatient E&M: 00909 Subs Hosp L2
[2019-02-19 14:55] VITALS: BP 145/92; PULSE 80; RESP 16; TEMP 37.2; O2SAT 93
--- NOTE | 2019-02-19 18:43 | NURSING ---
Tolerated full liquids well. Denied abd pain.
[2019-02-19 20:58] VITALS: BP 154/89; PULSE 81; RESP 18; TEMP 36.8; O2SAT 96
[2019-02-20 03:03] VITALS: BP 155/99; PULSE 85; RESP 18; TEMP 36.8; O2SAT 93
[2019-02-20] MEDS: Acetaminophen 325 MG Tablet 650 MG PO (03:12)
[2019-02-20 06:35] LABS: Absolute Neutrophil Count 7.4 X10^3/uL (2.0-7.7); Basophil# 0.03 X10^3/uL; Basophil% 0.3 % (0-1); Hematocrit 38.4 % (40-54); Hemoglobin 12.7 g/dl (13.0-16.5); Lymphocyte % 12.1 % (19-41); Mean Corp Hgb Conc 33.1 g/gl (32-36); Mean Corpuscular Hgb 30.8 pg (27.0-32.0); Mean Corpuscular Volume 93.2 fL (80-94); Monocyte# 0.98 X10^3/uL; Monocyte% 9.9 % (0-10); Neutrophil # 7.38 X10^3/uL (2.7-7.7); Neutrophil % 74.7 % (47-70); Platelet Count 305 K/mm3 (150-450); RBC Distribution Width CV 13.6 % (11.6-14.6); RBC Distribution Width SD 46.3 fl (35.1-43.9); Red Blood Count 4.12 M/mm3 (4.6-6.2); White Blood Count 9.9 K/mm3 (4.4-11.0)
[2019-02-20 06:37] LABS: POSITIVE COUNT NO; POSITIVE DIFFERENTIAL NO; POSITIVE MORPHOLOGY NO
[2019-02-20 07:07] LABS: Anion Gap 4 (5-15); BUN 8 mg/dL (7-18); Calcium,Total 8.7 mg/dL (8.5-10.1); Chloride 105 mmol/L (98-107); Creatinine, Serum 0.73 mg/dL (0.70-1.30); EST Glomerular Filtration Rate 111 mL/min (>60); Est Glom Filt Rate - Afr Amer 135 mL/min (>60); Estimated Creatinine Clearance 56.71 ml/min; Glucose 110 mg/dL (74-106); Potassium 3.4 mmol/L (3.5-5.1); Sodium Level 137 mmol/L (136-145)
[2019-02-20 07:08] VITALS: O2SAT 88
[2019-02-20 07:37] VITALS: BP 151/92; PULSE 72; RESP 16; TEMP 36.7; O2SAT 97
[2019-02-20] MEDS: Aspirin 81 MG TAB.CHEW PO (07:48)
--- NOTE | 2019-02-20 08:38 | DCINST_ITS ---
- Discharge Diagnoses Current Active Problems: Current Active and Chronic Problems (Last Reviewed 02/16/19 @ 07:39 by Vikram Xie MD) Perforated diverticulum of large intestine (Acute) Chest pain at rest (Acute) You will use the following diet at home:: No restrictions, Regular Your food should be the consistency of: Regular Discharge Activity: Return to Normal Activity, May Shower Lifting Restrictions: no lifting over 20 lbs for 4 weeks Call your doctor if your incision/area has: Continuous Slow Oozing, Sudden Increased Bleeding, Increased Pain/ Swelling, Increased Redness, Foul Smelling Discharge, Swelling at the incision site Call your doctor if you observe: Fever of 101 or Higher Allergies/Adverse Reactions: Allergies No Known Allergies Allergy (Verified 02/15/19 00:46) Medications to take at Discharge Allopurinol 300 mg PO DAILY 02/15/19 Amlodipine Besylate 10 mg PO DAILY 02/15/19 Aspir 81 81 mg PO DAILY 02/15/19 Atorvastatin Calcium 40 mg PO DAILY 02/15/19 Bisoprolol/Hydrochlorothiazide [Bisoprolol-Hctz 10-6.25 mg Tab] 1 tab PO DAILY 02/15/19 Icosapent Ethyl [Vascepa] 1 cap PO DAILY 02/15/19 Primary Care Physician: Kyle Del Rosario MD [Primary Care Provider] - Test Results: Test results from this visit will be discussed in further detail at your follow- up appointment, if applicable. Please Follow Up With: Osbaldo Greenwood MD When: Please call to schedule 1 week follow up appointment. [phone]
--- NOTE | 2019-02-20 08:38 | PCM.DC.SUM ---
Discharge Date and Diagnosis - Problem List Patient Problems: Active and Suspected Problems (Last Reviewed 02/16/19 @ 07:39 by Vikram Xie MD) Perforated diverticulum of large intestine (Acute) Chest pain at rest (Acute) Date of Admission: 02/15/19 Date of Discharge: 02/20/19 - Primary Discharge Diagnosis Active and Suspected Problems (Last Reviewed 02/16/19 @ 07:39 by Vikram Xie MD) Perforated diverticulum of large intestine (Acute) Chest pain at rest (Acute) Hospital Course and Treatment Imaging Results: Clinical Impression(s) from Imaging Studies Abdomen/Pelvis CT 02/15/19 00:53 IMPRESSION: 1. Lower sigmoid diverticulitis. Small pneumoperitoneum within the upper abdomen, likely related to perforated diverticulitis. Right pericolic small free fluid. The appendix appears negative. 2. Prostatic enlargement with small intraluminal urinary bladder gas which may be iatrogenic and recommend clinical correlation. 3. Chronic findings include fatty liver, atherosclerotic calcifications, and small umbilical hernia. Individualized dose optimization techniques were used for this CT. at 0322 Reported and signed by: Herson Keating MD Electronically Signed: Herson Keating, at 3:21 EDT Tel , Service support , ADDENDUM: 02/15/19 0403 IMPRESSION: 1. Lower sigmoid diverticulitis. Small pneumoperitoneum within the upper abdomen, likely related to perforated diverticulitis. Right pericolic small free fluid. The appendix appears negative. 2. Prostatic enlargement with small intraluminal urinary bladder gas which may be iatrogenic and recommend clinical correlation. 3. Chronic findings include fatty liver, atherosclerotic calcifications, and small umbilical hernia. Individualized dose optimization techniques were used for this CT. at 0322 Reported and signed by: Herson Keating MD N.B. : The above information has been verbally conveyed by Herson Keating to Khris Elmore MD, on 02/15/2019 03:56:14 (ET). Electronically Signed: Herson Keating, at 3:21 EDT Tel , Service support , ADDENDUM: 02/16/19 0748 IMPRESSION: 1. Lower sigmoid diverticulitis. Small pneumoperitoneum within the upper abdomen, likely related to perforated diverticulitis. Right pericolic small free fluid. The appendix appears negative. 2. Prostatic enlargement with small intraluminal urinary bladder gas which may be iatrogenic and recommend clinical correlation. 3. Chronic findings include fatty liver, atherosclerotic calcifications, and small umbilical hernia. Individualized dose optimization techniques were used for this CT. at 0322 Reported and signed by: Herson Keating MD N.B. : The above information has been verbally conveyed by Herson Keating to Khris Elmore MD, on 02/15/2019 03:56:14 (ET). Electronically Signed: Herson Keating, at 3:21 EDT Tel , Service support , Chest X-Ray 02/16/19 07:23 IMPRESSION: Limited inspiratory effort. Increased markings at the lung bases suggestive of bibasilar atelectasis and/or infiltrates. Electronically Signed: Marcus Villarreal, at 10:52 EDT , Service support , Abdomen X-Ray 02/18/19 05:55 IMPRESSION: Postoperative dilated small bowel loops with a small amount of air and fecal material in the colon. This may represent an ileus pattern although an early small bowel obstruction cannot be excluded. Further follow-up is recommended. Electronically Signed: Marcus Villarreal, at 11:21 EDT , Service support , Chest X-Ray 02/18/19 17:05 IMPRESSION: Bibasilar atelectasis and question small right pleural effusion Cardiomegaly Limited inspiration at 1845 Reported and signed by: Davina Jenkins DO Electronically Signed: Davina Jenkins DO at 18:44 EDT Tel , Service support , KUB X-Ray 02/19/19 05:55 IMPRESSION: Persistent small bowel dilatation, possibly partial obstruction or ileus. Tubular density projects over the lower lumbar spine and sacrum, uncertain exact location or etiology. at 0813 Reported and signed by: Susan Humphreys MD Electronically Signed: Susan Humphreys MD at 8:13 EDT Tel , Service support , Hospitalist service Operations: colectomy Procedures: None Summary of Care Provided: The patient is a 78 year old M who presented with perforated sigmoid diverticulitis. He was immediately taken for laparoscopic sigmoid colectomy with anastomosis. Patient did well after surgery. Once he was passing flatus and having bowel function he was started on a diet and this was slowly advanced. Once he was tolerating a diet he was discharged home in stable condition. On day of discharge patient was doing well and tolerating regular diet. Patient Problems: Active and Suspected Problems (Last Reviewed 02/16/19 @ 07:39 by Vikram Xie MD) Perforated diverticulum of large intestine (Acute) Chest pain at rest (Acute) - Physical Exam General: Alert, Oriented x3 Neck: No JVD Lungs: Normal air movement Cardiovascular: Regular rate, Regular Rhythm Abdomen: Soft, Non Tender, Non-Distended, - - Incisions are clean dry and intact with no erythema or drainage. Skin: No rashes Musculoskeletal: No Muscle Wasting Psych/Mental Status: Normal Affect Vital Signs Temp Pulse Resp BP Pulse Ox 98.1 F 72 16 151/92 H 97 02/20/19 07:37 02/20/19 07:37 02/20/19 07:37 02/20/19 07:37 02/20/19 07:37 Oxygen Flow Rate (L/min) 2 Oxygen Delivery Method Room Air Weight: 220 lb 7.396 oz Body Mass Index (BMI) 35.6 Intake and Output for Last 24 Hours 02/18/19 02/19/19 02/20/19 23:59 23:59 23:59 Intake Total 2223 / 2223 1329 / 1329 200 / 200 Output Total 0 / 0 750 / 750 Balance 2223 / 2223 579 / 579 200 / 200 Laboratory Tests Past 24 Hrs 02/20/19 02/20/19 06:00 06:00 WBC 9.9 RBC 4.12 L Hgb 12.7 L Hct 38.4 L MCV 93.2 MCH 30.8 MCHC 33.1 RDW 13.6 RDW Differential 46.3 H Plt Count 305 MPV 10.0 Immature Gran % (Auto) 1.000 H Neut % (Auto) 74.7 H Lymph % (Auto) 12.1 L [place] % (Auto) 9.9 Eos % (Auto) 2.0 Baso % (Auto) 0.3 Absolute Neuts (auto) 7.4 Absolute Lymphs (auto) 1.20 Total Counted Not Reportable Sodium 137 Potassium 3.4 L Chloride 105 Carbon Dioxide 28.0 Anion Gap 4 L BUN 8 Creatinine 0.73 Estim Creat Clear Calc 56.71 Est GFR (MDRD) Af Amer 135 Est GFR (MDRD) Non-Af 111 BUN/Creatinine Ratio 11.0 Glucose 110 H Calcium 8.7 Discharge Activity: Return to Normal Activity, May Shower Call your doctor if your incision/area has: Continuous Slow Oozing, Sudden Increased Bleeding, Increased Pain/ Swelling, Increased Redness, Foul Smelling Discharge, Swelling at the incision site Call your doctor if you observe: Fever of 101 or Higher Home Medications: Medications to take at Discharge Allopurinol 300 mg PO DAILY 02/15/19 Amlodipine Besylate 10 mg PO DAILY 02/15/19 Aspir 81 81 mg PO DAILY 02/15/19 Atorvastatin Calcium 40 mg PO DAILY 02/15/19 Bisoprolol/Hydrochlorothiazide [Bisoprolol-Hctz 10-6.25 mg Tab] 1 tab PO DAILY 02/15/19 Icosapent Ethyl [Vascepa] 1 cap PO DAILY 02/15/19 Primary Care Physician: Kyle Del Rosario MD [Primary Care Provider] - Please Follow Up With: Osbaldo Greenwood MD When: Please call to schedule 1 week follow up appointment. [phone] Medical Necessity - Tobacco Use Smoking Status: Current some day smoker Meaningful Use Info Meaningful Use Diagnoses (Choose all that apply): None applicable
[2019-02-20] MEDS: amLODIPine 10 MG Tablet PO (09:37)
[2019-02-20] MEDS: Pantoprazole Sodium 40 MG Tablet PO (09:37)
[2019-02-20] MEDS: Enoxaparin 40 MG/0.4 ML Syringe SC (09:37)
== END 2019-02-20 10:54 | disposition home or self-care (01) | DRG 330 ==
LOC: ED 03:14 → SDC 03:55 → AC 03:56 → MS3 06:00 → SDC 09:38 → MS3 09:43
PROVIDERS: Hospitalist; Surgery; Admitting Provider Surgery; Emergency Provider Emergency Medicine; Family Provider Family Medicine; PCP Family Medicine; Visit Provider Internal Medicine
PROC: 0DTN0ZZ Resection of Sigmoid Colon, Open Approach (ICD-10-PCS; CPT 44204; principal; 2019-02-15 04:30)
DX: K57.20 Diverticulitis of large intestine with perforation and abscess without bleeding (principal); K56.7 Ileus, unspecified; J98.11 Atelectasis; I10 Essential (primary) hypertension; E78.5 Hyperlipidemia, unspecified; R09.02 Hypoxemia; E87.6 Hypokalemia; R06.89 Other abnormalities of breathing; F17.200 Nicotine dependence, unspecified, uncomplicated
CPT/HCPCS: 36415; 71045; 71046; 74018; 74019; 74176; 80048; 80053; 80061; 81001; 82330; 83605; 83690; 83880; 84484; 85025; 85610; 86850; 86900; 88304; 88307; 93005; 93306; 99285; J7030; J7040; J7120; Q9957; A4216; C1760; J2405; J7799

== ENCOUNTER → 2019-05-11 08:25 | Outpatient (CLI) | payer MEDICARE, SELFPAY ==
[2019-03-04 08:32] VITALS: BMI 35.6
[2019-05-11 10:41] LABS: Anion Gap 6 (5-15); BUN 12 mg/dL (7-18); BUN/Creat Ratio 13.1 RATIO (10-20); Calcium,Total 8.7 mg/dL (8.5-10.1); Chloride 106 mmol/L (98-107); Cholesterol 155 mg/dL (200); Creatinine, Serum 0.91 mg/dL (0.70-1.30); EST Glomerular Filtration Rate 86 mL/min (>60); Est Glom Filt Rate - Afr Amer 103 mL/min (>60); Glucose 102 mg/dL (74-106); High Density Lipoprotein 30 mg/dL; Sodium Level 141 mmol/L (136-145); Triglycerides 452 mg/dL; Uric Acid 6.4 mg/dL (3.5-7.2)
[2019-05-11 10:44] LABS: Hemoglobin A1c 5.9 % (4.2-6.3)
== END ==
PROVIDERS: Family Provider Family Medicine; PCP Family Medicine; Referring Provider Family Medicine; Visit Provider Family Medicine
DX: I10 Essential (primary) hypertension (principal); E78.5 Hyperlipidemia, unspecified; R73.01 Impaired fasting glucose; M10.9 Gout, unspecified
CPT/HCPCS: 36415; 80048; 80061; 83036; 84550

== ENCOUNTER → 2020-05-24 08:04 | Outpatient (CLI) | payer MEDICARE, SELFPAY ==
[2019-03-04 08:32] VITALS: BMI 35.6
[2020-05-24 10:08] LABS: Absolute Lymphocyte Count 1.68 X10^3/uL (0.83-4.51); Absolute Neutrophil Count 4.2 X10^3/uL (2.0-7.7); Basophil# 0.04 X10^3/uL; Basophil% 0.6 % (0-1); Eosinophil# 0.11 X10^3/uL; Eosinophils% 1.6 % (0-5); Hematocrit 45.7 % (40-54); Hemoglobin 14.9 g/dL (13.0-16.5); Lymphocyte # 1.68 X10^3/ul (4.0); Lymphocyte % 24.9 % (19-41); Mean Corp Hgb Conc 32.6 g/dL (32-36); Mean Corpuscular Hgb 29.7 pg (27.0-32.0); Mean Corpuscular Volume 91.2 fL (80-94); Mean Platelet Vol. 11.2 fl (6.2-12.0); Monocyte# 0.69 X10^3/uL; Monocyte% 10.2 % (0-10); NRBC Flagged by Analyzer 0 % (0-5); Neutrophil # 4.22 X10^3/uL (2.7-7.7); Neutrophil % 62.4 % (47-70); Platelet Count 290 K/mm3 (150-450); RBC Distribution Width CV 13.7 % (11.6-14.6); RBC Distribution Width SD 46.5 fl (35.1-43.9); Red Blood Count 5.01 M/mm3 (4.6-6.2); White Blood Count 6.8 K/mm3 (4.4-11.0)
[2020-05-24 11:18] LABS: ALB/GLOB Ratio 1.1 RATIO (0.9-2.4); AST(SGOT) 21 U/L (15-37); Alanine Aminotransfer ALT/SGPT 26 U/L (16-61); Albumin, Serum 3.6 g/dL (3.2-5.0); Alkaline Phosphatase 111 U/L (45-117); Anion Gap 8 (5-15); BUN 14 mg/dL (7-18); BUN/Creat Ratio 15.8 RATIO (10-20); Calcium,Total 8.7 mg/dL (8.5-10.1); Chloride 104 mmol/L (98-107); Cholesterol 174 mg/dL (200); Creatinine, Serum 0.89 mg/dL (0.70-1.30); EST Glomerular Filtration Rate 88 mL/min (>60); Est Glom Filt Rate - Afr Amer 107 mL/min (>60); Globulin 3.3 g/dL (2.2-4.2); Glucose 99 mg/dL (74-106); High Density Lipoprotein 25 mg/dL; Potassium 4.5 mmol/L (3.5-5.1); Protein, Total 6.9 g/dL (6.4-8.2); Sodium Level 140 mmol/L (136-145); Thyroid Stim Hormone (TSH) 2.85 uIU/mL (0.358-3.74); Triglycerides 689 mg/dL
== END ==
PROVIDERS: PCP Family Medicine; Referring Provider Family Medicine; Visit Provider Family Medicine
DX: I10 Essential (primary) hypertension (principal); E78.5 Hyperlipidemia, unspecified; R73.01 Impaired fasting glucose
CPT/HCPCS: 36415; 80053; 80061; 83036; 84443; 85025

== ENCOUNTER → 2020-10-29 09:26 | Outpatient (CLI) | payer MEDICARE, SELFPAY ==
[2019-03-04 08:32] VITALS: BMI 35.6
[2020-10-29 10:34] LABS: AST(SGOT) 26 U/L (15-37); Alanine Aminotransfer ALT/SGPT 37 U/L (16-61); Albumin, Serum 3.7 g/dL (3.2-5.0); Alkaline Phosphatase 107 U/L (45-117); Anion Gap 7 (5-15); BUN 15 mg/dL (7-18); Calcium,Total 9.1 mg/dL (8.5-10.1); Chloride 102 mmol/L (98-107); Cholesterol 176 mg/dL (200); Creatinine, Serum 0.88 mg/dL (0.70-1.30); EST Glomerular Filtration Rate 89 mL/min (>60); Est Glom Filt Rate - Afr Amer 108 mL/min (>60); Globulin 3.6 g/dL (2.2-4.2); Glucose 105 mg/dL (74-106); High Density Lipoprotein 41 mg/dL; Potassium 3.9 mmol/L (3.5-5.1); Protein, Total 7.3 g/dL (6.4-8.2); Sodium Level 137 mmol/L (136-145); Triglycerides 324 mg/dL; Very Low Density Lipoprotein 65 mg/dL (5-40)
== END ==
PROVIDERS: PCP Family Medicine; Referring Provider Family Medicine; Visit Provider Family Medicine
DX: I10 Essential (primary) hypertension (principal); E78.5 Hyperlipidemia, unspecified
CPT/HCPCS: 36415; 80053; 80061

== ENCOUNTER → 2021-04-10 08:06 | Outpatient (CLI) | payer MEDICARE, SELFPAY ==
[2019-03-04 08:32] VITALS: BMI 35.6
[2021-04-10 10:28] LABS: Absolute Lymphocyte Count 1.85 X10^3/uL (0.83-4.51); Absolute Neutrophil Count 5.2 X10^3/uL (2.0-7.7); Basophil# 0.04 X10^3/uL; Basophil% 0.5 % (0-1); Eosinophil# 0.16 X10^3/uL; Hematocrit 47.5 % (40-54); Hemoglobin 15.7 g/dL (13.0-16.5); Lymphocyte # 1.85 X10^3/ul (0.83-4.51); Mean Corp Hgb Conc 33.1 g/dL (32-36); Mean Corpuscular Hgb 30.3 pg (27.0-32.0); Mean Corpuscular Volume 91.5 fL (80-94); Mean Platelet Vol. 10.7 fl (6.2-12.0); Monocyte# 0.78 X10^3/uL; Monocyte% 9.7 % (0-10); NRBC Flagged by Analyzer 0 % (0-5); Neutrophil # 5.18 X10^3/uL (2.7-7.7); Neutrophil % 64.3 % (47-70); Platelet Count 313 K/mm3 (150-450); RBC Distribution Width CV 12.7 % (11.6-14.6); RBC Distribution Width SD 42.9 fl (35.1-43.9); Red Blood Count 5.19 M/mm3 (4.6-6.2); White Blood Count 8.1 K/mm3 (4.4-11.0)
[2021-04-10 11:08] LABS: Hemoglobin A1c 5.9 % (3.8-5.6)
[2021-04-10 11:09] LABS: ALB/GLOB Ratio 0.9 RATIO (0.9-2.4); AST(SGOT) 24 U/L (15-37); Alanine Aminotransfer ALT/SGPT 38 U/L (16-61); Albumin, Serum 3.5 g/dL (3.2-5.0); Alkaline Phosphatase 108 U/L (45-117); Anion Gap 6 (5-15); BUN 13 mg/dL (7-18); BUN/Creat Ratio 14.5 RATIO (10-20); Calcium,Total 8.9 mg/dL (8.5-10.1); Chloride 102 mmol/L (98-107); Cholesterol 156 mg/dL (200); EST Glomerular Filtration Rate 87 mL/min (>60); Est Glom Filt Rate - Afr Amer 105 mL/min (>60); Globulin 3.8 g/dL (2.2-4.2); Glucose 101 mg/dL (74-106); High Density Lipoprotein 32 mg/dL; Protein, Total 7.3 g/dL (6.4-8.2); Sodium Level 136 mmol/L (136-145); Triglycerides 319 mg/dL; Very Low Density Lipoprotein 64 mg/dL (5-40)
== END ==
PROVIDERS: PCP Family Medicine; Referring Provider Family Medicine; Visit Provider Family Medicine
DX: I10 Essential (primary) hypertension (principal); R73.01 Impaired fasting glucose
CPT/HCPCS: 36415; 80053; 80061; 83036; 85025

== ENCOUNTER 2021-10-16 08:34 | Outpatient (CLI) | payer MEDICARE, SELFPAY ==
[2021-10-16 08:42] LABS: Bacteria 0 SEEN /hpf (None Seen); Mucous, Urine 0 SEEN /hpf (<or=2+); Red Blood Cells-Urine 0 SEEN /hpf (0-5); Squamous Epithelial Cells - UA 0 SEEN /hpf (0-5); White Blood Cells 0 SEEN /hpf (0-5)
[2021-10-16 10:25] LABS: Basophil# 0.06 X10^3/uL; Basophil% 0.7 % (0-1); Eosinophil# 0.09 X10^3/uL; Eosinophils% 1.1 % (0-5); Hematocrit 47.6 % (40-54); Hemoglobin 15.9 g/dL (13.0-16.5); Lymphocyte % 26.6 % (19-41); Mean Corp Hgb Conc 33.4 g/dL (32-36); Mean Corpuscular Hgb 30.3 pg (27.0-32.0); Mean Corpuscular Volume 90.8 fL (80-94); Mean Platelet Vol. 10.8 fl (6.2-12.0); Monocyte# 0.82 X10^3/uL; Monocyte% 9.9 % (0-10); NRBC Flagged by Analyzer 0 % (0-5); Neutrophil # 5.04 X10^3/uL (2.7-7.7); Platelet Count 314 K/mm3 (150-450); RBC Distribution Width CV 13.6 % (11.6-14.6); RBC Distribution Width SD 45.4 fl (35.1-43.9); Red Blood Count 5.24 M/mm3 (4.6-6.2); White Blood Count 8.3 K/mm3 (4.4-11.0)
[2021-10-16 10:26] LABS: Color, Urine Yellow (Yellow); Glucose, Dipstick Normal (Normal); Ketone-Dipstick Negative (Negative); Leukocyte Esterase-Dipstick Negative /ul (Negative); Nitrite-Dipstick Negative (Negative); Occult Blood-Urine Negative /ul (Negative); Protein-Dipstick Negative (Negative); Urine Bilirubin Dipstick Negative (Negative); Urine Clarity Clear (Clear); Urine Urobilinogen 1 mg/dl (Normal)
[2021-10-16 11:06] LABS: ALB/GLOB Ratio 0.9 RATIO (0.9-2.4); AST(SGOT) 20 U/L (15-37); Alanine Aminotransfer ALT/SGPT 38 U/L (16-61); Albumin, Serum 3.5 g/dL (3.2-5.0); Alkaline Phosphatase 101 U/L (45-117); Anion Gap 8 (5-15); BUN 13 mg/dL (7-18); BUN/Creat Ratio 14.4 RATIO (10-20); Calcium,Total 8.9 mg/dL (8.5-10.1); Chloride 102 mmol/L (98-107); Cholesterol 156 mg/dL (200); EST Glomerular Filtration Rate 87 mL/min (>60); Est Glom Filt Rate - Afr Amer 105 mL/min (>60); Globulin 3.9 g/dL (2.2-4.2); Glucose 102 mg/dL (74-106); High Density Lipoprotein 41 mg/dL; Potassium 3.7 mmol/L (3.5-5.1); Protein, Total 7.4 g/dL (6.4-8.2); Sodium Level 138 mmol/L (136-145); Thyroid Stim Hormone (TSH) 3.62 uIU/mL (0.358-3.74); Triglycerides 330 mg/dL; Uric Acid 8.7 mg/dL (3.5-7.2); Very Low Density Lipoprotein 66 mg/dL (5-40)
[2021-10-16 11:24] LABS: Hemoglobin A1c 5.9 % (3.8-5.6)
[2021-10-17 10:36] LABS: MG Sendout 1.8 mg/dL (1.6-2.3)
== END 2021-10-16 23:59 | disposition home or self-care (01) ==
LOC: MFPLAB 08:35
PROVIDERS: PCP Family Medicine; Referring Provider Family Medicine; Visit Provider Family Medicine
DX: E78.5 Hyperlipidemia, unspecified (principal); R73.01 Impaired fasting glucose; I10 Essential (primary) hypertension; M10.9 Gout, unspecified
CPT/HCPCS: 36415; 80053; 80061; 81001; 83036; 83735; 84443; 84550; 85025

== ENCOUNTER 2021-11-07 09:56 | Outpatient (CLI) | payer MEDICARE, SELFPAY ==
--- NOTE | 2021-11-07 10:04 | ECHOD_ITS ---
Version 2 Reason For Study: MURMUR Procedure This was a 2D Doppler, Color Flow transthoracic echocardiogram. The study was technically difficult. Due to body habitus. Left Ventricle Normal LV size. Left ventricular systolic function is normal. The estimated ejection fraction is 55 %. Stage 1 diastolic dysfunction. No regional wall motion abnormalities noted. Right Ventricle Normal RV size. Normal systolic function. Atria The left atrium is mildly enlarged. Normal right atrium. Mitral Valve Mitral valve not well visualized. Tricuspid Valve The tricuspid valve is not well visualized. Aortic Valve Trisinus/trileaflet aortic valve. Mild diffuse aortic valve thickening. Pulmonic Valve The pulmonic valve is not well visualized. Great Vessels Normal aortic root. Pericardium/Pleural No pericardial effusion. MMode/2D Measurements & Calculations LVIDd: 5.1 cm IVSd: 1.00 cm Ao root diam: 3.1 cm LVIDs: 3.0 cm LVPWd: 0.98 cm RVDd: 3.2 cm FS: 41.3 % LAV(MOD-bp): 70.3 ml LA A4 area: 23.5 cm2 LA dimension(2D): 3.5 cm LAV(MOD-bp) Indexed: 33.7 ml/m2 LAV(MOD-sp2): 70.9 ml LAV(MOD-sp4): 70.7 ml RA A4 area: 18.6 cm2 Time Measurements MV dec time: 0.31 sec Doppler Measurements & Calculations MV E max da: 71.0 cm/sec Lat Peak E' Da: 7.2 cm/sec Med Peak E' Da: 8.4 cm/sec MV A max da: 114.8 cm/sec E/E' lat: 9.8 E/E' med: 8.4 MV E/A: 0.62 Ao V2 max: 173.6 cm/sec LV V1 max: 126.1 cm/sec PA V2 max: 119.5 cm/sec Ao max P.1 mmHg LV V1 max P.4 mmHg ECHO/Echo Complete Interpretation Summary Normal LV size. Left ventricular systolic function is normal. The estimated ejection fraction is 55 %. Mild diffuse aortic valve thickening. Stage 1 diastolic dysfunction. The left atrium is mildly enlarged. Ordering Physician: Kyle Scruggs Referring Physician: Kyle Scruggs Performed By: Ratna Burks, RONALD, RVT
== END 2021-11-07 23:59 | disposition home or self-care (01) ==
LOC: CVS 09:58
PROVIDERS: PCP Family Medicine; Referring Provider Family Medicine; Visit Provider Family Medicine
DX: R01.1 Cardiac murmur, unspecified (principal)
CPT/HCPCS: 93306

== ENCOUNTER → 2022-01-23 | Outpatient (CLI) | payer MEDICARE, SELFPAY ==
[2022-01-23 08:35] LABS: Bacteria 0 SEEN /hpf (None Seen); Mucous, Urine 0 SEEN /hpf (<or=2+); Red Blood Cells-Urine 0 SEEN /hpf (0-5); Squamous Epithelial Cells - UA 0 SEEN /hpf (0-5); White Blood Cells 0 SEEN /hpf (0-5)
[2022-01-23 10:20] LABS: Color, Urine Straw (Yellow); Glucose, Dipstick Normal (Normal); Ketone-Dipstick Negative (Negative); Leukocyte Esterase-Dipstick Negative /ul (Negative); Nitrite-Dipstick Negative (Negative); Occult Blood-Urine Negative /ul (Negative); Protein-Dipstick Negative (Negative); Urine Bilirubin Dipstick Negative (Negative); Urine Clarity Clear (Clear); Urine Urobilinogen Normal (Normal)
[2022-01-23 10:27] LABS: Absolute Neutrophil Count 5.8 X10^3/uL (2.0-7.7); Basophil# 0.04 X10^3/uL; Basophil% 0.5 % (0-1); Eosinophil# 0.12 X10^3/uL; Eosinophils% 1.5 % (0-5); Hematocrit 48.1 % (40-54); Hemoglobin 15.4 g/dL (13.0-16.5); Lymphocyte % 18.3 % (19-41); Mean Corpuscular Hgb 29.6 pg (27.0-32.0); Mean Corpuscular Volume 92.3 fL (80-94); Monocyte# 0.73 X10^3/uL; Monocyte% 8.9 % (0-10); NRBC Flagged by Analyzer 0 % (0-5); Neutrophil # 5.76 X10^3/uL (2.7-7.7); Neutrophil % 70.3 % (47-70); Platelet Count 303 K/mm3 (150-450); RBC Distribution Width CV 13.4 % (11.6-14.6); RBC Distribution Width SD 45.7 fl (35.1-43.9); Red Blood Count 5.21 M/mm3 (4.6-6.2); White Blood Count 8.2 K/mm3 (4.4-11.0)
[2022-01-23 10:45] LABS: AST(SGOT) 21 U/L (15-37); Alanine Aminotransfer ALT/SGPT 31 U/L (16-61); Albumin, Serum 3.7 g/dL (3.2-5.0); Alkaline Phosphatase 116 U/L (45-117); Anion Gap 7 (5-15); BUN 13 mg/dL (7-18); BUN/Creat Ratio 12.9 RATIO (10-20); Chloride 104 mmol/L (98-107); Cholesterol 137 mg/dL (200); Creatinine, Serum 1.01 mg/dL (0.70-1.30); EST Glomerular Filtration Rate 76 mL/min (>60); Est Glom Filt Rate - Afr Amer 92 mL/min (>60); Globulin 3.8 g/dL (2.2-4.2); Glucose 102 mg/dL (74-106); High Density Lipoprotein 36 mg/dL; Potassium 4.3 mmol/L (3.5-5.1); Protein, Total 7.5 g/dL (6.4-8.2); Sodium Level 137 mmol/L (136-145); Triglycerides 232 mg/dL; Uric Acid 8.4 mg/dL (3.5-7.2); Very Low Density Lipoprotein 46 mg/dL (5-40)
[2022-01-23 11:01] LABS: Hemoglobin A1c 5.8 % (3.8-5.6)
== END | disposition home or self-care (01) ==
LOC: MFPLAB 08:32
PROVIDERS: PCP Family Medicine; Referring Provider Family Medicine; Visit Provider Family Medicine
DX: I10 Essential (primary) hypertension (principal); R73.01 Impaired fasting glucose; E78.5 Hyperlipidemia, unspecified; M10.9 Gout, unspecified
CPT/HCPCS: 36415; 80053; 80061; 81001; 83036; 84550; 85025

== ENCOUNTER → 2022-05-29 | Outpatient (CLI) | payer MEDICARE, SELFPAY ==
[2022-05-29 08:20] LABS: Bacteria 0 SEEN /hpf (None Seen); Mucous, Urine 0 SEEN /hpf (<or=2+); Red Blood Cells-Urine 0 SEEN /hpf (0-5); White Blood Cells 0 SEEN /hpf (0-5)
[2022-05-29 10:35] LABS: Color, Urine Yellow (Yellow); Glucose, Dipstick Normal (Normal); Ketone-Dipstick Negative (Negative); Leukocyte Esterase-Dipstick Negative /ul (Negative); Nitrite-Dipstick Negative (Negative); Occult Blood-Urine Negative /ul (Negative); Protein-Dipstick Negative (Negative); Urine Bilirubin Dipstick Negative (Negative); Urine Clarity Clear (Clear); Urine Urobilinogen Normal (Normal)
[2022-05-29 10:38] LABS: Absolute Lymphocyte Count 1.52 X10^3/uL (0.83-4.51); Absolute Neutrophil Count 5.5 X10^3/uL (2.0-7.7); Basophil# 0.04 X10^3/uL; Basophil% 0.5 % (0-1); Eosinophils% 1.3 % (0-5); Hematocrit 46.2 % (40-54); Hemoglobin 15.1 g/dL (13.0-16.5); Lymphocyte # 1.52 X10^3/ul (0.83-4.51); Lymphocyte % 19.4 % (19-41); Mean Corp Hgb Conc 32.7 g/dL (32-36); Mean Corpuscular Volume 91.8 fL (80-94); Mean Platelet Vol. 10.8 fl (6.2-12.0); Monocyte# 0.69 X10^3/uL; Monocyte% 8.8 % (0-10); NRBC Flagged by Analyzer 0 % (0-5); Neutrophil # 5.45 X10^3/uL (2.7-7.7); Neutrophil % 69.6 % (47-70); Platelet Count 327 K/mm3 (150-450); RBC Distribution Width CV 13.4 % (11.6-14.6); RBC Distribution Width SD 45.1 fl (35.1-43.9); Red Blood Count 5.03 M/mm3 (4.6-6.2); White Blood Count 7.8 K/mm3 (4.4-11.0)
[2022-05-29 10:45] LABS: Squamous Epithelial Cells - UA 0-5 SEEN /hpf (0-5)
[2022-05-29 10:50] LABS: ALB/GLOB Ratio 0.9 RATIO (0.9-2.4); AST(SGOT) 17 U/L (15-37); Alanine Aminotransfer ALT/SGPT 29 U/L (16-61); Albumin, Serum 3.5 g/dL (3.2-5.0); Alkaline Phosphatase 122 U/L (45-117); Anion Gap 7 (5-15); BUN 10 mg/dL (7-18); BUN/Creat Ratio 10.6 RATIO (10-20); Calcium,Total 9.1 mg/dL (8.5-10.1); Chloride 104 mmol/L (98-107); Cholesterol 117 mg/dL (200); Creatinine, Serum 0.94 mg/dL (0.70-1.30); EST Glomerular Filtration Rate 82 mL/min (>60); Est Glom Filt Rate - Afr Amer 100 mL/min (>60); Globulin 4.1 g/dL (2.2-4.2); Glucose 105 mg/dL (74-106); High Density Lipoprotein 40 mg/dL; Protein, Total 7.6 g/dL (6.4-8.2); Sodium Level 137 mmol/L (136-145); Triglycerides 156 mg/dL; Very Low Density Lipoprotein 31 mg/dL (5-40)
[2022-05-29 11:02] LABS: Hemoglobin A1c 5.9 % (3.8-5.6)
== END | disposition home or self-care (01) ==
LOC: MFPLAB 08:17
PROVIDERS: PCP Family Medicine; Referring Provider Family Medicine; Visit Provider Family Medicine
DX: I10 Essential (primary) hypertension (principal); R73.01 Impaired fasting glucose; E78.5 Hyperlipidemia, unspecified; M10.9 Gout, unspecified
CPT/HCPCS: 36415; 80053; 80061; 81001; 83036; 84550; 85025

== ENCOUNTER → 2022-10-17 | Outpatient (CLI) | payer MEDICARE, SELFPAY ==
[2022-10-17 12:38] LABS: Absolute Neutrophil Count 4.4 X10^3/uL (2.0-7.7); Basophil# 0.03 X10^3/uL; Basophil% 0.5 % (0-1); Eosinophil# 0.07 X10^3/uL; Eosinophils% 1.1 % (0-5); Hematocrit 47.8 % (40-54); Hemoglobin 15.7 g/dL (13.0-16.5); Lymphocyte % 23.3 % (19-41); Mean Corp Hgb Conc 32.8 g/dL (32-36); Mean Corpuscular Hgb 30.6 pg (27.0-32.0); Mean Corpuscular Volume 93.2 fL (80-94); Monocyte# 0.47 X10^3/uL; Monocyte% 7.3 % (0-10); NRBC Flagged by Analyzer 0 % (0-5); Neutrophil # 4.35 X10^3/uL (2.7-7.7); Neutrophil % 67.5 % (47-70); Platelet Count 281 K/mm3 (150-450); RBC Distribution Width CV 13.4 % (11.6-14.6); RBC Distribution Width SD 45.6 fl (35.1-43.9); Red Blood Count 5.13 M/mm3 (4.6-6.2); White Blood Count 6.4 K/mm3 (4.4-11.0)
[2022-10-17 12:59] LABS: Hemoglobin A1c 5.8 % (3.8-5.6)
[2022-10-17 13:39] LABS: ALB/GLOB Ratio 0.9 RATIO (0.9-2.4); AST(SGOT) 16 U/L (15-37); Alanine Aminotransfer ALT/SGPT 30 U/L (16-61); Albumin, Serum 3.5 g/dL (3.2-5.0); Alkaline Phosphatase 104 U/L (45-117); Anion Gap 8 (5-15); BUN 12 mg/dL (7-18); Calcium,Total 8.6 mg/dL (8.5-10.1); Chloride 105 mmol/L (98-107); Cholesterol 160 mg/dL (200); Creatinine, Serum 1.09 mg/dL (0.70-1.30); EST Glomerular Filtration Rate 69 mL/min (>60); Est Glom Filt Rate - Afr Amer 84 mL/min (>60); Globulin 3.7 g/dL (2.2-4.2); Glucose 148 mg/dL (74-106); High Density Lipoprotein 41 mg/dL; Potassium 3.8 mmol/L (3.5-5.1); Protein, Total 7.2 g/dL (6.4-8.2); Sodium Level 139 mmol/L (136-145); Thyroid Stim Hormone (TSH) 1.71 uIU/mL (0.358-3.74); Triglycerides 346 mg/dL; Very Low Density Lipoprotein 69 mg/dL (5-40)
== END | disposition home or self-care (01) ==
LOC: MFPLAB 10:01
PROVIDERS: PCP Family Medicine; Referring Provider Family Medicine; Visit Provider Family Medicine
DX: I10 Essential (primary) hypertension (principal); E78.5 Hyperlipidemia, unspecified; R73.01 Impaired fasting glucose; M10.9 Gout, unspecified
CPT/HCPCS: 36415; 80053; 80061; 83036; 84443; 84550; 85025

== ENCOUNTER → 2023-10-19 | Outpatient (CLI) | payer MEDICARE, SELFPAY ==
[2023-10-19 12:39] LABS: Absolute Lymphocyte Count 1.81 X10^3/uL (0.83-4.51); Absolute Neutrophil Count 7.7 X10^3/uL (2.0-7.7); Basophil# 0.03 X10^3/uL; Basophil% 0.3 % (0-1); Eosinophil# 0.08 X10^3/uL; Eosinophils% 0.8 % (0-5); Hematocrit 46.9 % (40-54); Hemoglobin 15.3 g/dL (13.0-16.5); Lymphocyte # 1.81 X10^3/ul (0.83-4.51); Lymphocyte % 17.9 % (19-41); Mean Corp Hgb Conc 32.6 g/dL (32-36); Mean Corpuscular Hgb 29.9 pg (27.0-32.0); Mean Corpuscular Volume 91.6 fL (80-94); Mean Platelet Vol. 10.9 fl (6.2-12.0); Monocyte# 0.49 X10^3/uL; Monocyte% 4.8 % (0-10); NRBC Flagged by Analyzer 0 % (0-5); Neutrophil # 7.65 X10^3/uL (2.7-7.7); Neutrophil % 75.7 % (47-70); Platelet Count 282 K/mm3 (150-450); RBC Distribution Width CV 13.9 % (11.6-14.6); RBC Distribution Width SD 47.4 fl (35.1-43.9); Red Blood Count 5.12 M/mm3 (4.6-6.2); White Blood Count 10.1 K/mm3 (4.4-11.0)
[2023-10-19 13:55] LABS: ALB/GLOB Ratio 0.9 RATIO (0.9-2.4); AST(SGOT) 17 U/L (15-37); Alanine Aminotransfer ALT/SGPT 34 U/L (16-61); Albumin, Serum 3.6 g/dL (3.2-5.0); Alkaline Phosphatase 98 U/L (45-117); Anion Gap 7 (5-15); BUN 13 mg/dL (7-18); BUN/Creat Ratio 12.3 RATIO (10-20); Chloride 106 mmol/L (98-107); Cholesterol 179 mg/dL (200); Creatinine, Serum 1.06 mg/dL (0.70-1.30); EST Glomerular Filtration Rate 71 mL/min (>60); Est Glom Filt Rate - Afr Amer 86 mL/min (>60); Globulin 3.8 g/dL (2.2-4.2); Glucose 140 mg/dL (74-106); High Density Lipoprotein 47 mg/dL; Potassium 3.8 mmol/L (3.5-5.1); Protein, Total 7.4 g/dL (6.4-8.2); Sodium Level 139 mmol/L (136-145); Thyroid Stim Hormone (TSH) 2.17 uIU/mL (0.358-3.74); Triglycerides 250 mg/dL; Uric Acid 6.2 mg/dL (3.5-7.2); Very Low Density Lipoprotein 50 mg/dL (5-40)
[2023-10-19 14:29] LABS: Microalbumin,Random Urine 7.4 mg/L (NO RANGE EST.); Microalbumin:Creatinine Ratio 5.5 mg/g CRE (<30 mg/g CRE)
== END | disposition home or self-care (01) ==
LOC: MFPLAB 09:48
PROVIDERS: PCP Family Medicine; Visit Provider Family Medicine
DX: R73.01 Impaired fasting glucose (principal); E04.1 Nontoxic single thyroid nodule; M10.9 Gout, unspecified; E78.5 Hyperlipidemia, unspecified; I10 Essential (primary) hypertension
CPT/HCPCS: 36415; 80053; 80061; 82043; 82570; 83036; 84439; 84443; 84550; 85025

== ENCOUNTER → 2024-06-24 | Outpatient (CLI) | payer MEDICARE, SELFPAY ==
[2024-06-24 10:38] LABS: Absolute Lymphocyte Count 1.67 X10^3/uL (0.83-4.51); Absolute Neutrophil Count 5.2 X10^3/uL (2.0-7.7); Basophil# 0.05 X10^3/uL; Basophil% 0.6 % (0-1); Eosinophils% 1.3 % (0-5); Hematocrit 45.6 % (40-54); Hemoglobin 15.3 g/dL (13.0-16.5); Lymphocyte # 1.67 X10^3/ul (0.83-4.51); Lymphocyte % 21.4 % (19-41); Mean Corp Hgb Conc 33.6 g/dL (32-36); Mean Corpuscular Hgb 31.2 pg (27.0-32.0); Mean Corpuscular Volume 92.9 fL (80-94); Monocyte# 0.78 X10^3/uL; NRBC Flagged by Analyzer 0 % (0-5); Neutrophil # 5.19 X10^3/uL (2.7-7.7); Neutrophil % 66.4 % (47-70); Platelet Count 269 K/mm3 (150-450); RBC Distribution Width CV 13.2 % (11.6-14.6); RBC Distribution Width SD 45.1 fl (35.1-43.9); Red Blood Count 4.91 M/mm3 (4.6-6.2); White Blood Count 7.8 K/mm3 (4.4-11.0)
[2024-06-24 11:46] LABS: Hemoglobin A1c 5.8 % (3.8-5.6)
[2024-06-24 11:54] LABS: AST(SGOT) 21 U/L (15-37); Alanine Aminotransfer ALT/SGPT 28 U/L (16-61); Albumin, Serum 3.7 g/dL (3.2-5.0); Alkaline Phosphatase 100 U/L (45-117); Anion Gap 5 (5-15); BUN 12 mg/dL (7-18); BUN/Creat Ratio 12.7 RATIO (10-20); Calcium,Total 9.3 mg/dL (8.5-10.1); Chloride 104 mmol/L (98-107); Cholesterol 152 mg/dL (200); Creatinine, Serum 0.94 mg/dL (0.70-1.30); EST Glomerular Filtration Rate 81 mL/min (>60); Est Glom Filt Rate - Afr Amer 99 mL/min (>60); Globulin 3.8 g/dL (2.2-4.2); Glucose 106 mg/dL (74-106); High Density Lipoprotein 45 mg/dL; Protein, Total 7.5 g/dL (6.4-8.2); Sodium Level 136 mmol/L (136-145); Triglycerides 240 mg/dL; Uric Acid 7.3 mg/dL (3.5-7.2); Very Low Density Lipoprotein 48 mg/dL (5-40)
== END | disposition home or self-care (01) ==
LOC: MFPLAB 08:24
PROVIDERS: PCP Family Medicine; Visit Provider Family Medicine
DX: I10 Essential (primary) hypertension (principal); R73.01 Impaired fasting glucose; M10.9 Gout, unspecified
CPT/HCPCS: 36415; 80053; 80061; 83036; 84443; 84550; 85025

== ENCOUNTER → 2024-10-26 | Outpatient (CLI) | payer MEDICARE, SELFPAY ==
[2024-10-26 09:00] LABS: Bacteria 0 SEEN /hpf (None Seen); Mucous, Urine 0 SEEN /hpf (<or=2+); Squamous Epithelial Cells - UA 0 SEEN /hpf (0-5); White Blood Cells 0 SEEN /hpf (0-5)
[2024-10-26 10:23] LABS: Absolute Lymphocyte Count 1.68 X10^3/uL (0.83-4.51); Absolute Neutrophil Count 4.8 X10^3/uL (2.0-7.7); Basophil# 0.03 X10^3/uL; Basophil% 0.4 % (0-1); Eosinophil# 0.11 X10^3/uL; Eosinophils% 1.5 % (0-5); Hematocrit 42.5 % (40-54); Hemoglobin 14.1 g/dL (13.0-16.5); Lymphocyte # 1.68 X10^3/ul (0.83-4.51); Lymphocyte % 23.1 % (19-41); Mean Corp Hgb Conc 33.2 g/dL (32-36); Mean Corpuscular Hgb 30.7 pg (27.0-32.0); Mean Corpuscular Volume 92.4 fL (80-94); Mean Platelet Vol. 10.8 fl (6.2-12.0); Monocyte# 0.67 X10^3/uL; Monocyte% 9.2 % (0-10); NRBC Flagged by Analyzer 0 % (0-5); Neutrophil # 4.75 X10^3/uL (2.7-7.7); Neutrophil % 65.4 % (47-70); Platelet Count 274 K/mm3 (150-450); RBC Distribution Width CV 13.7 % (11.6-14.6); RBC Distribution Width SD 46.8 fl (35.1-43.9); White Blood Count 7.3 K/mm3 (4.4-11.0)
[2024-10-26 10:32] LABS: Color, Urine Yellow (Yellow); Glucose, Dipstick Normal (Normal); Ketone-Dipstick Negative (Negative); Leukocyte Esterase-Dipstick Negative /ul (Negative); Nitrite-Dipstick Negative (Negative); Occult Blood-Urine Negative /ul (Negative); Protein-Dipstick Negative (Negative); Specific Gravity, Urine 1.015 (1.002-1.030); Urine Bilirubin Dipstick Negative (Negative); Urine Clarity Clear (Clear); Urine Urobilinogen Normal (Normal)
[2024-10-26 10:46] LABS: AST(SGOT) 19 U/L (15-37); Alanine Aminotransfer ALT/SGPT 28 U/L (16-61); Albumin, Serum 3.7 g/dL (3.2-5.0); Alkaline Phosphatase 87 U/L (45-117); Anion Gap 8 (5-15); BUN 17 mg/dL (7-18); BUN/Creat Ratio 16.3 RATIO (10-20); Calcium,Total 9.1 mg/dL (8.5-10.1); Chloride 105 mmol/L (98-107); Cholesterol 156 mg/dL (200); Creatinine, Serum 1.04 mg/dL (0.70-1.30); EST Glomerular Filtration Rate 73 mL/min (>60); Est Glom Filt Rate - Afr Amer 88 mL/min (>60); Globulin 3.7 g/dL (2.2-4.2); Glucose 109 mg/dL (74-106); High Density Lipoprotein 43 mg/dL; Magnesium 1.9 mg/dL (1.6-2.6); Potassium 4.1 mmol/L (3.5-5.1); Protein, Total 7.4 g/dL (6.4-8.2); Sodium Level 137 mmol/L (136-145); Triglycerides 210 mg/dL; Very Low Density Lipoprotein 42 mg/dL (5-40)
[2024-10-26 11:01] LABS: Red Blood Cells-Urine 0 SEEN /hpf (0-5)
[2024-10-26 11:15] LABS: Hemoglobin A1c 5.8 % (3.8-5.6)
== END | disposition home or self-care (01) ==
LOC: MFPLAB 08:53
PROVIDERS: PCP Family Medicine; Referring Provider Family Medicine; Visit Provider Family Medicine
DX: I10 Essential (primary) hypertension (principal); E78.5 Hyperlipidemia, unspecified; R73.01 Impaired fasting glucose
CPT/HCPCS: 36415; 80053; 80061; 81001; 83036; 83735; 84443; 84550; 85025